=== PATIENT | male | born 1935 | race Caucasian/White ===

== ENCOUNTER 2023-05-16 12:38 | Emergency (ER) | payer OTHER, SELFPAY ==
[2023-05-16 12:40] VITALS: BP 163/55
[2023-05-16 12:42] VITALS: BP 163/55
[2023-05-16 12:46] VITALS: BMI 23.4
[2023-05-16 13:00] VITALS: BP 164/60
[2023-05-16 13:07] LABS: % Basophils 0.5 % (0-2); % Eosinophils 0.7 % (0-6); % Immature Granulocytes 0.1 % (0-0.5); % Monocytes 6.7 % (1.7-9.3); Absolute Eosinophils 0.1 10^3/uL (0-0.7); Absolute Lymphocytes 3.4 10^3/uL (1.2-3.4); Absolute Monocytes 0.5 10^3/uL (0.1-0.6); Absolute Neutrophils 3.5 10^3/uL (1.4-6.5); Hematocrit 35.4 % (39.0-52.0); Mean Corp Hgb Conc. 33.9 g/dL (33.0-37.0); Mean Corpuscular Volume 91.5 fL (80.0-94.0); Mean Platelet Volume 11.9 fL (7.4-10.4); Nucleated Red Blood Cells % 0 % (-); Platelet Count 139 10^3/uL (130-400); Red Blood Cell Count 3.87 10^6/uL (4.70-6.10); Red Cell Dist. Width 13.8 % (11.5-14.5); White Blood Cell Count 7.5 10^3/uL (4.8-10.8)
--- NOTE | 2023-05-16 13:13 | ED.GENMED ---
History of Present Illness
General
Chief Complaint: Change in Mental Status
Source: patient, ambulance crew and prison
Time Seen by Provider: 05/16/23 13:06
Travel History
Have you had any contact with someone who has COVID-19?: No
Do you have any symptoms of coronavirus? Fever > 100 degrees, chills, cough, shortness of breath, sore throat, loss of taste or smell, muscle aches, or headache?: No
History of Present Illness
History of Present Illness:
88-year-old male brought to the emerged by ambulance after being found on the floor. Patient had been seen 15 minutes prior and had been 'okay'. Stiff has explained to EMS that patient was less aggressive than normal. Patient offers no
complaints. He does endorse falling but states it was a very mild fall. He denies any headache. He does not take any oral anticoagulant.
Past History
Past History
ED Past Medical History: HTN, Hypercholesterolemia and Other (alzheimers)
Social History
Tobacco: Non-smoker
Alcohol: None
Drug: None
Phy Exam
Physical Exam
Physical Exam:
General: Awake, Alert, Oriented X2. No acute distress.
Vitals: unremarkable
Head: Atraumatic
Eyes: Pupils equal, EOMI
Throat: Airway intact, no exudates
Neck: Trachea midline
Lungs: Clear and equal b/l
Heart: Regular rate, no murmurs
Abd: Soft, Nontender, No pulsatile mass
Neuro: Nonfocal
Skin: Warm, dry, no rash
Extremities: pulses equal b/l, no edema
Course
Orders/Labs/Results
Orders:
Orders
05/16/23 12:45
EKG [Electrocardiogram (*1)] Urgent
Reason for Study: Hypertension, Benign
EKG- Treatment ONCE
05/16/23 12:55
Basic Metabolic Panel Urgent
Complete Blood Count/With Diff Urgent
05/16/23 13:13
CT Head W/o Iv Contrast Urgent
Comment:
Reason For Exam: altered mental status
05/16/23 13:28
Urinalysis Reflex To Culture Urgent
Date Specimen was Collected: 05/16/23
Time Specimen was Collected: 13:26
Urine Microscopic Reflex Cult Urgent
Urine Culture Urgent
INOCENCIO Source: U
Specimen Description:
Date Specimen was Collected: 05/16/23
Time Specimen was Collected: 13:26
Abnormal Lab Results
05/16/23 05/16/23
12:55 13:28
RBC 3.87 L 10^6/uL
(4.70-6.10)
Hgb 12.0 L g/dL
(13.0-18.0)
Hct 35.4 L %
(39.0-52.0)
MPV 11.9 H fL
(7.4-10.4)
BUN 25 H mg/dl
(9-20)
Leukocyte Esterase Rfl 1+ A
(Negative)
Urine RBC 7-10 A /HPF
(0-2)
Urine WBC (Reflex) 16-20 A /HPF
(0-5)
Urine Bacteria (Reflex) Moderate A
(Negative)
Urine Albumin (Reflex) 1+ A
(Neg - Trace)
05/16/23 12:55
05/16/23 12:55
Vital Signs
Initial and Last Documented VS:
Initial Vital Signs
Temp Pulse Resp BP Pulse Ox
98.9 F 57 12 163/55 98
05/16/23 12:40 05/16/23 12:40 05/16/23 12:40 05/16/23 12:40 05/16/23 12:40
Last Documented Vital Signs
Temp Pulse Resp BP Pulse Ox
98.9 F 60 13 161/64 98
05/16/23 12:40 05/16/23 14:15 05/16/23 14:15 05/16/23 13:47 05/16/23 14:51
MDM/Problems Addressed
Differential Diagnosis Includes:
Fall without significant injury, UTI, electrolyte abnormality,
MDM/Problems Addressed:
Urinalysis is suggestive of a contaminated specimen. We will obtain urine culture and patient will be called if it appears she is growing a pathologic organism. Rest of labs are reassuring. Stable for discharge back to his facility.
*Pulse Oximetry
Patient hypoxic: no
*EKG
Interpreted by ED Provider?: Yes
Heart Rate: 58
Rate: bradycardiac
Rhythm: sinus
Interval: normal interval
QRS Pattern: left vent hypertrophy
Ischemia: non-specific ST changes
*Social Media Sr Strategy Manager Interpretation
Rate: bradycardiac
Interpretation: abnormal
Rhythm: sinus
*Critical Care Note
Total Time (30-74mins, 75-104mins- exclusive of procedures): Not Applicable
ED Attending Note
-
Portions of this chart may have been created with voice recognition software.� Occasional wrong word or��sound alike� substitutions may have occurred due to the inherent limitations of voice recognition software.
Discharge Plan
Departure
Patient Disposition: Alf/SNF
Date of Disposition: 05/16/23
Time of Disposition: 14:52
Patient with high blood pressure during this ER visit?: Yes
Condition: Good
Discharge Problem:
Fall, Head injury
Instructions: Preventing falls in adults, BLOOD PRESSURE
Prescriptions:
No Action
loperamide 2 mg Capsule
4 mg PO DAILYPRN PRN (Reason: diarrhea)
trazodone 50 mg Tablet
50 mg PO HS
donepezil 10 mg Tablet
20 mg PO QPM
cyanocobalamin (vitamin B-12) 1,000 mcg Tablet
1,000 mcg PO DAILY
lorazepam 0.5 mg Tablet
0.5 mg PO Q12H@0900,2100
diltiazem HCl 60 mg Capsule,Extended Release 12 Hr
60 mg PO DAILY
escitalopram oxalate 20 mg Tablet
20 mg PO DAILY
rosuvastatin 10 mg Tablet
10 mg PO QPM
cholecalciferol (vitamin D3) 25 mcg (1,000 unit) Tablet
25 mcg PO DAILY
Rexulti 0.5 mg Tablet
0.5 mg PO DAILY
Referrals:
Alisha Blanc DO [Family Provider] -
Interventions
Interventions:
*Risk Screen - Suicide Last Done: 05/16/23 12:40
*General Assessment Last Done: 05/16/23 12:40
*Neglect/Abuse Screening Last Done: 05/16/23 12:40
ED- Fall Risk Assessment Last Done: 05/16/23 12:40
*ED COVID-19 Vaccine History Last Done: 05/16/23 12:40
*Nursing Disposition Last Done: 05/16/23 14:51
ED- Pulmonary Assessment Last Done: 05/16/23 14:51
ED-Psychological Assessment Last Done: 05/16/23 14:51
ED- Neurological Assessment Last Done: 05/16/23 12:40
ED- Cardiac Assessment Last Done: 05/16/23 12:40
ED Swallowing Screen Last Done: 05/16/23 12:40
Discharge Date and Time
Discharge Date/Time: 05/16/23 15:42
[2023-05-16 13:18] LABS: Blood Urea Nitrogen 25 mg/dl (9-20); Calcium 9.4 mg/dl (8.4-10.2); Carbon Dioxide 28 mmol/L (22-30); Chloride 104 mmol/L (98-107); Estimated Creatinine Clearance 44 ml/min; Glucose 77 mg/dl (70-99); Potassium 3.9 mmol/L (3.5-5.1); Sodium 135 mmol/L (135-145); eGFR 53.17
[2023-05-16 13:30] VITALS: BP 177/61
[2023-05-16 13:44] LABS: Urine Albumin 1+ (Neg - Trace); Urine Bilirubin Negative (Negative); Urine Character Slightly Cloudy (Clear); Urine Color Yellow; Urine Glucose Negative (Negative); Urine Ketone Negative (Negative); Urine Leukocyte 1+ (Negative); Urine Nitrite Negative (Negative); Urine Occult Blood Negative (Negative); Urine Urobilinogen Negative (Neg - 1+)
[2023-05-16 13:47] VITALS: BP 161/64
[2023-05-16 13:59] LABS: Urine Squamous Cell >30 /LPF (Few)
[2023-05-16 14:00] LABS: Urine White Cell 16-20 /HPF (0-5)
[2023-05-16 14:03] LABS: Urine Bacteria Moderate (Negative)
== END 2023-05-16 15:42 ==
LOC: EMR 12:38
PROVIDERS: Emergency Medicine; EMERGENCY PHYSICIAN Emergency Medicine; FAMILY PHYSICIAN Hospitalist
DX: S09.90XA Unspecified injury of head, initial encounter (principal); W19.XXXA Unspecified fall, initial encounter; I10 Essential (primary) hypertension
CPT/HCPCS: 99285; 70450; 80048; 81003; 81015; 85025; 87086; 93005

== ENCOUNTER 2023-06-19 10:36 | Emergency (ER) | payer OTHER, SELFPAY ==
[2023-06-19 10:43] VITALS: BP 135/56; BMI 21.8
[2023-06-19 11:00] VITALS: BP 121/63
--- NOTE | 2023-06-19 11:24 | ED.GENMED ---
History of Present Illness
General
Chief Complaint: Cold/Flu/URI Symptoms
Source: patient
Exam Limitations: none
Time Seen by Provider: 06/19/23 10:57
Nursing documentation reviewed up to this point in time: agreed with
Travel History
Have you had any contact with someone who has COVID-19?: No
Do you have any symptoms of coronavirus? Fever > 100 degrees, chills, cough, shortness of breath, sore throat, loss of taste or smell, muscle aches, or headache?: No
History of Present Illness
History of Present Illness:
88 yo male with h/o Altzheimer's, HLD, HTN presents stating here for 'mucus in my chest.' States he has a post nasal drip and coughing up excess mucus. Denies fever, CP, trouble breathing, n/v/d/c, abdominal pain.
Past History
Past History
ED Past Medical History: HTN, Hypercholesterolemia and Other (Alzheimer's)
ED Past Surgical History: Orthopedic
Social History
Tobacco: Non-smoker
Alcohol: None
Drug: None
Personal:
Living: other (dementia care facility)
Review of Systems
Review of Systems
Allergies reviewed?: Yes
All Other Systems: ROS reviewed and negative except as documented in HPI and ROS
Constitutional: Denies fever
EENT: Reports runny nose and other (post nasal drip); Denies sore throat
Respiratory: Reports cough (more clearing of throat than coughing); Denies trouble breathing
Cardiac: Denies chest pain
ABD/GI: Denies abdominal pain or nausea
: Denies dysuria or difficulty voiding
Musculoskeletal: Reports no symptoms
Skin: Reports no symptoms
Neurological: Reports no symptoms
Phy Exam
Physical Exam
Physical Exam:
GENERAL: No acute distress. A&Ox3.
CONSTITUTIONAL: Afebrile.
EYES: PERRL, conjunctivae normal
Neck: Supple
ENMT: moist mucus membranes, Pharynx nl, clears throat with clear mucus
RESPIRATORY: Regular respirations, nonlabored, lungs clear.
CARDIOVASCULAR: Regular rate and rhythm, no murmurs, no rubs.
GI: Soft, nontender, normal BS
MUSCULOSKELETAL: Moves with ease. Well perfused.
SKIN: Warm, dry, pink
PSYCH: Normal mood and affect. Well kept, interactive and appropriate
NEUROLOGIC: Awake, alert and oriented. No focal neurological deficits
Course
Orders/Labs/Results
Orders:
Orders
06/19/23 11:24
CR Chest - 2 Views Urgent
Comment:
Reason For Exam: cough
06/19/23 11:39
COVID-19 Antigen Urgent
Source: Nasal Swab
Complete Blood Count/With Diff Urgent
Comprehensive Metabolic Panel Urgent
06/19/23 13:18
Doxycycline [Vibramycin] 100 mg PO NOW STA
Abnormal Lab Results
06/19/23
11:39
RBC 4.08 L 10^6/uL
(4.70-6.10)
Hgb 12.1 L g/dL
(13.0-18.0)
Hct 37.2 L %
(39.0-52.0)
MCHC 32.5 L g/dL
(33.0-37.0)
MPV 12.8 H fL
(7.4-10.4)
Absolute Lymphs (auto) 3.9 H 10^3/uL
(1.2-3.4)
Neutrophils % 40.9 L %
(42.2-75.2)
BUN 22 H mg/dl
(9-20)
06/19/23 11:39
06/19/23 11:39
Vital Signs
Initial and Last Documented VS:
Initial Vital Signs
Temp Pulse Resp BP Pulse Ox
98.5 F 53 18 135/56 98
06/19/23 10:43 06/19/23 10:43 06/19/23 10:43 06/19/23 10:43 06/19/23 10:43
Last Documented Vital Signs
Temp Pulse Resp BP Pulse Ox
98.5 F 68 18 103/74 96
06/19/23 10:43 06/19/23 14:01 06/19/23 14:01 06/19/23 14:00 06/19/23 13:59
MDM/Problems Addressed
Differential Diagnosis Includes:
PND, COVID, pneumonia, viral URI
MDM/Problems Addressed:
88 yo male here from [facility]) with h/o Altzheimer's, HLD, HTN presents stating here for 'mucus in my chest.' States he has a post nasal drip and coughing up excess mucus. Denies fever, CP, trouble breathing, n/v/d/c,
abdominal pain.
He is pleasant, NAD, Afebrile
Is clearing his throat with clear mucus expectorated.
06/19/2023 1316 PM
CBC unremarkable
CMP with no clinically significant abnormality
Chest x-ray radiology report read: IMPRESSION:
Questionable small patchy right upper lobe opacity for which pneumonia cannot be excluded.
Pt eating regular diet and drinking well. No dysphagia
Frequently clearing throat and spitting out clear mucus
Will treat with Doxycycline 100 mg BID x 10 days.
Stable for discharge back to residence
Spoke with daughter Gala updated on diagnosis and plan of care
Received a call from a staff member who is going to stop by [facility] pharmacy to bean picker machine operator his prescription and then swing by here and pick him
*Critical Care Note
Total Time (30-74mins, 75-104mins- exclusive of procedures): Not Applicable
ED Attending Note
-
Portions of this chart may have been created with voice recognition software.� Occasional wrong word or��sound alike� substitutions may have occurred due to the inherent limitations of voice recognition software.
Discharge Plan
Departure
Patient Disposition: Assisted Living
Date of Disposition: 06/19/23
Time of Disposition: 13:17
Condition: Good
Discharge Problem:
Pneumonia
Instructions: Pneumonia
Prescriptions:
New
doxycycline monohydrate 100 mg capsule
100 mg PO BID Qty: 19 0RF
No Action
loperamide 2 mg Capsule
4 mg PO DAILYPRN PRN (Reason: diarrhea)
trazodone 50 mg Tablet
50 mg PO HS
donepezil 10 mg Tablet
20 mg PO QPM
cyanocobalamin (vitamin B-12) 1,000 mcg Tablet
1,000 mcg PO DAILY
lorazepam 0.5 mg Tablet
0.5 mg PO Q12H@0900,2100
diltiazem HCl 60 mg Capsule,Extended Release 12 Hr
60 mg PO DAILY
escitalopram oxalate 20 mg Tablet
20 mg PO DAILY
rosuvastatin 10 mg Tablet
10 mg PO QPM
cholecalciferol (vitamin D3) 25 mcg (1,000 unit) Tablet
25 mcg PO DAILY
Rexulti 0.5 mg Tablet
0.5 mg PO DAILY
Referrals:
Alisha Blanc, [Non-Admitting Privileges] - Follow up in 2-3 days
Activity Restrictions/Additional Instructions:
Pt has probable mild RUL pneumonia
Given Doxycycline 100 mg here today
Rx for Doxycycline 100 mg BID sent back with him
He is swallowing food and water well. No dysphagia
He is clearing his throat with mucus frequently
Interventions
Interventions:
*Risk Screen - Suicide Last Done: 06/19/23 10:43
*General Assessment Last Done: 06/19/23 10:43
*Neglect/Abuse Screening Last Done: 06/19/23 10:43
ED- Fall Risk Assessment Last Done: 06/19/23 10:43
*ED COVID-19 Vaccine History Last Done: 06/19/23 10:43
*Nursing Disposition Last Done: 06/19/23 14:33
ED- Pulmonary Assessment Last Done: 06/19/23 10:43
Discharge Date and Time
Discharge Date/Time: 06/19/23 15:35
[2023-06-19 12:00] VITALS: BP 131/61
[2023-06-19 12:04] LABS: COVID-19 Antigen Negative (Negative)
[2023-06-19 12:39] LABS: ALT (SGPT) 24 U/L (0-50); AST (SGOT) 30 U/L (17-59); Alkaline Phosphatase 76 U/L (38-126); Blood Urea Nitrogen 22 mg/dl (9-20); Carbon Dioxide 25 mmol/L (22-30); Chloride 106 mmol/L (98-107); Estimated Creatinine Clearance 47 ml/min; Glucose 91 mg/dl (70-99); Potassium 4.9 mmol/L (3.5-5.1); Sodium 135 mmol/L (135-145); Total Bilirubin 0.6 mg/dl (0.2-1.3); Total Protein 6.5 g/dl (6.3-8.2); eGFR 58.53
[2023-06-19 12:44] LABS: % Basophils 0.6 % (0-2); % Eosinophils 1.9 % (0-6); % Immature Granulocytes 0.1 % (0-0.5); % Lymphocytes 48.9 % (20.5-51.1); % Monocytes 7.6 % (1.7-9.3); % Neutrophils 40.9 % (42.2-75.2); Absolute Basophils 0.1 10^3/uL (0-0.2); Absolute Eosinophils 0.2 10^3/uL (0-0.7); Absolute Lymphocytes 3.9 10^3/uL (1.2-3.4); Absolute Monocytes 0.6 10^3/uL (0.1-0.6); Absolute Neutrophils 3.2 10^3/uL (1.4-6.5); Hematocrit 37.2 % (39.0-52.0); Hemoglobin 12.1 g/dL (13.0-18.0); Mean Corp Hgb Conc. 32.5 g/dL (33.0-37.0); Mean Corpuscular Hgb 29.7 pg (27.0-31.0); Mean Corpuscular Volume 91.2 fL (80.0-94.0); Mean Platelet Volume 12.8 fL (7.4-10.4); Nucleated Red Blood Cells % 0 % (-); Platelet Count 151 10^3/uL (130-400); Red Blood Cell Count 4.08 10^6/uL (4.70-6.10); Red Cell Dist. Width 13.3 % (11.5-14.5); White Blood Cell Count 7.9 10^3/uL (4.8-10.8)
[2023-06-19 13:18] VITALS: BP 133/98
[2023-06-19] MEDS: VIBRAMYCIN 100 MG PO (13:58)
[2023-06-19 14:00] VITALS: BP 103/74
== END 2023-06-19 15:35 ==
LOC: EMR 10:36
PROVIDERS: Registered Nurse; EMERGENCY PHYSICIAN Emergency Medicine
DX: J18.9 Pneumonia, unspecified organism (principal); Z11.52 Encounter for screening for COVID-19; I10 Essential (primary) hypertension; E78.00 Pure hypercholesterolemia, unspecified; G30.9 Alzheimer's disease, unspecified; F02.80 Dementia in other diseases classified elsewhere, unspecified severity, without behavioral disturbance, psychotic disturbance, mood disturbance, and anxiety; N40.0 Benign prostatic hyperplasia without lower urinary tract symptoms; Z88.0 Allergy status to penicillin
CPT/HCPCS: 99283; 71046; 80053; 85025; 87811

== ENCOUNTER 2023-08-04 13:01 | Inpatient (IN) | payer OTHER, SELFPAY ==
[2023-08-04 10:54] VITALS: BP 133/58
--- NOTE | 2023-08-04 11:06 | ED.GENMED ---
History of Present Illness
General
Chief Complaint: Cough
Source: patient and ambulance crew
Time Seen by Provider: 08/04/23 10:56
Travel History
Have you had any contact with someone who has COVID-19?: No
Do you have any symptoms of coronavirus? Fever > 100 degrees, chills, cough, shortness of breath, sore throat, loss of taste or smell, muscle aches, or headache?: No
History of Present Illness
History of Present Illness:
88-year-old male with past medical history of Alzheimer's, hypertension, hyperlipidemia presenting to the emergency department for evaluation of cough x 2 weeks that is now causing the patient discomfort when coughing. There is no reported fevers,
chills, rigors, lower extremity edema, abdominal pain, nausea, vomiting, current chest pain when not coughing, shortness of breath, diaphoresis or any other concerns. No medications been given for the cough. No other concerns at this time
Past History
Past History
ED Past Medical History: HTN, Hypercholesterolemia and Other (Alzheimer's)
ED Past Surgical History: Orthopedic
Social History
Tobacco: Non-smoker
Alcohol: None
Drug: None
Personal:
Living: other (dementia care facility)
Review of Systems
Review of Systems
All Other Systems: ROS reviewed and negative except as documented in HPI and ROS
Phy Exam
Physical Exam
Physical Exam:
GENERAL: Alert , in no apparent distress, dry hacking cough intermittently during the exam
EYE: conjunctiva clear
NECK: Supple
ENT: o/p clr, mmm.
CARDIAC: Regular rate and rhythm
LUNGS: Faint wheeze that clears with coughing, rhonchorous cough, no Rales
NEUROLOGICAL: Alert and oriented
SKIN: Warm and dry, skin intact.
MUSCULOSKELETAL: well perfused. No edema
PSYCH: Normal and appropriate interaction.
Scores
Heart Failure Risk
Heart Failure Risk Score: Not Applicable
Heart Score for Chest Pain Patients
STEMI patient?: Not applicable
Withdrawal Assessment of Alcohol
Withdrawal Assessment Completed?: Not applicable
Course
Orders/Labs/Results
Orders:
Orders
08/04/23 11:06
CR Chest Portable - 1 View Urgent
Comment:
Reason For Exam: cough x 2 weeks
Reason Study Needs to be Portable: Unable to Transport
08/04/23 11:17
Basic Metabolic Panel Urgent
COVID-19 Antigen Urgent
Source: Nasal Swab
Complete Blood Count/With Diff Urgent
NT-proBNP Urgent
08/04/23 11:37
Azithromycin [Zithromax] 500 mg PO NOW STA
CefTRIAXone [Rocephin] 1,000 mg IV NOW STA
08/04/23 11:41
Sterile Water [Sterile Water For Injection] 10 ml .ROUTE .[facility]
08/04/23 12:36
Admit/Transfer Patient As Directed
Co-Sign Provider:
Level of Care: Inpatient admission
Assign to:: Medical/Surgical
Physician / Group: Nat
Diagnosis: RUL pneumonia
Reason for Hospitalization: IV antibiotics, CT chest
Expected length of stay greater than two midnights?: Yes
ELOS- Estimated Length of Stay in days: 2
I certify the patient meets the requirements for IP care: Yes
CT Chest W/o Iv Contrast Routine
Comment:
Reason For Exam: RUL mass
08/04/23 12:39
Code Status As Directed
Resuscitation Status: Full Code
Abnormal Lab Results
08/04/23
11:17
WBC 14.7 H 10^3/uL
(4.8-10.8)
RBC 3.91 L 10^6/uL
(4.70-6.10)
Hgb 12.0 L g/dL
(13.0-18.0)
Hct 34.7 L %
(39.0-52.0)
MPV 11.6 H fL
(7.4-10.4)
Abs Immat Gran (auto) 0.1 H 10^3/uL
(0-0.05)
Absolute Neuts (auto) 11.7 H 10^3/uL
(1.4-6.5)
Absolute Monos (auto) 0.9 H 10^3/uL
(0.1-0.6)
Neutrophils % 79.8 H %
(42.2-75.2)
Lymphocytes % 13.2 L %
(20.5-51.1)
Sodium 134 L mmol/L
(135-145)
BUN 24 H mg/dl
(9-20)
08/04/23 11:17
08/04/23 11:17
Vital Signs
Initial and Last Documented VS:
Initial Vital Signs
Temp Pulse Resp BP Pulse Ox
98.9 F 62 20 133/58 93
08/04/23 10:54 08/04/23 10:54 08/04/23 10:54 08/04/23 10:54 08/04/23 10:54
Last Documented Vital Signs
Temp Pulse Resp BP Pulse Ox
98.9 F 66 20 133/58 92
08/04/23 10:54 08/04/23 12:28 08/04/23 10:54 08/04/23 10:54 08/04/23 12:15
MDM/Problems Addressed
Differential Diagnosis Includes:
Pneumonia, asthma, COPD, viral syndrome
MDM/Problems Addressed:
88-year-old male presenting to the ER for evaluation of cough x 2 weeks, today apparently started with discomfort in his chest when coughing. He arrives to the ER hemodynamically stable and in no acute respiratory distress. Patient is somewhat
argumentative during history taking and physical exam. Oxygen saturation continuously between 95 and 97% on room air. Will obtain labs and a chest x-ray. Reassessment following.
Chronic conditions affecting care: HTN and Neurological disorder
*Radiology
Radiology exam reviewed: preliminary read by ED provider (Suspected right upper lobe pneumonia)
*Pulse Oximetry
Patient hypoxic: no
*Critical Care Note
Total Time (30-74mins, 75-104mins- exclusive of procedures): Not Applicable
Data Reviewed
Review of Other/Old Records Reveals: Records (Patient recently here in May diagnosed with pneumonia with similar presentation)
Patient Management
Discussion with other providers: Hospitalist
Escalation/DeEscalation of care consider admission/obs:
Given patient's age, past medical history combined with resident in a long-term care facility and apparent worsening of pneumonia plan will be to admit to hospitalist team for IV antibiotics.
ED Attending Note
-
Portions of this chart may have been created with voice recognition software.� Occasional wrong word or��sound alike� substitutions may have occurred due to the inherent limitations of voice recognition software.
Discharge Plan
Departure
Patient Disposition: Admit
Date of Disposition: 08/04/23
Time of Disposition: 11:43
Presentation/result/management discussed w/ accepting MD/DO: Hospitalist
Discharge Problem:
Pneumonia
Interventions
Interventions:
*Risk Screen - Suicide Last Done: 08/04/23 10:54
*General Assessment Last Done: 08/04/23 10:54
*Neglect/Abuse Screening Last Done: 08/04/23 10:54
*ED COVID-19 Vaccine History Last Done: 08/04/23 10:54
ED- Pulmonary Assessment Last Done: 08/04/23 11:04
[2023-08-04 11:32] LABS: % Basophils 0.3 % (0-2); % Eosinophils 0.5 % (0-6); % Immature Granulocytes 0.3 % (0-0.5); % Lymphocytes 13.2 % (20.5-51.1); % Monocytes 5.9 % (1.7-9.3); % Neutrophils 79.8 % (42.2-75.2); Absolute Basophils 0.1 10^3/uL (0-0.2); Absolute Eosinophils 0.1 10^3/uL (0-0.7); Absolute Immature Granulocytes 0.1 10^3/uL (0-0.05); Absolute Lymphocytes 1.9 10^3/uL (1.2-3.4); Absolute Monocytes 0.9 10^3/uL (0.1-0.6); Absolute Neutrophils 11.7 10^3/uL (1.4-6.5); Hematocrit 34.7 % (39.0-52.0); Mean Corp Hgb Conc. 34.6 g/dL (33.0-37.0); Mean Corpuscular Hgb 30.7 pg (27.0-31.0); Mean Corpuscular Volume 88.7 fL (80.0-94.0); Mean Platelet Volume 11.6 fL (7.4-10.4); Nucleated Red Blood Cells % 0 % (-); Platelet Count 147 10^3/uL (130-400); Red Blood Cell Count 3.91 10^6/uL (4.70-6.10); Red Cell Dist. Width 13.2 % (11.5-14.5); White Blood Cell Count 14.7 10^3/uL (4.8-10.8)
[2023-08-04 11:41] LABS: COVID-19 Antigen Negative (Negative)
[2023-08-04 11:46] LABS: Blood Urea Nitrogen 24 mg/dl (9-20); Calcium 9.5 mg/dl (8.4-10.2); Carbon Dioxide 27 mmol/L (22-30); Chloride 102 mmol/L (98-107); Glucose 98 mg/dl (70-99); Potassium 4.2 mmol/L (3.5-5.1); Sodium 134 mmol/L (135-145); eGFR > 60.00
[2023-08-04] MEDS: ZITHROMAX 500 MG PO (11:50)
[2023-08-04] MEDS: ROCEPHIN 1000 MG IV (11:51)
[2023-08-04 11:56] LABS: NT-proBNP 795 pg/ml
--- NOTE | 2023-08-04 12:43 | HPS.HSE ---
Addendum entered and electronically signed by Christian Johns DO 08/04/23 12:54:
Updated daughter Gala on the phone. All questions answered. She mentioned that her father is a full code.
Original Note:
Family Physician
-
Family Physician: NOT KNOW UNKNOWN - PT DOES
Chief Complaint
-
Cough
History of Present Illness
88-year-old male with Alzheimer's dementia here with cough for the past 2 weeks. Denies shortness of breath. Denies chest pain. Denies loss of appetite. Denies weight loss. Very poor and limited historian. Becomes progressively more angry when
asked more questions.
Medical History
Past Medical History
Past Medical History: Reports Other
Additional Past Medical History:
Alzheimer's dementia
Essential hypertension
Hyperlipidemia
Past Surgical History: Reports Orthopedic
Social History
Tobacco: Non-smoker
Alcohol: None
Drug: None
Family History
Family History: Not pertinent
Allergies / Home Medications
Allergies reflects when Allergies were last updated in [facility].
Home Medications with original date entered in [facility]
Allergy/Medication List:
Allergies
Allergy/AdvReac Type Severity Reaction Status Date / Time
Penicillins Allergy Unknown Verified 06/19/23 10:42
NKA - No Known Allergies Allergy Unknown Uncoded 06/19/23 10:42
Home Medications
cholecalciferol (vitamin D3) 25 mcg (1,000 unit) tablet 25 mcg PO DAILY 05/16/23
cyanocobalamin (vitamin B-12) 1,000 mcg tablet 1,000 mcg PO DAILY 05/16/23
donepezil 10 mg tablet 20 mg PO QPM 05/16/23
trazodone 50 mg tablet 50 mg PO HS 05/16/23
aspirin 81 mg tablet,delayed release 81 mg PO DAILY 08/04/23
atorvastatin 20 mg tablet 20 mg PO QPM 08/04/23
diltiazem HCl 30 mg tablet 30 mg PO BID 08/04/23
lisinopril 5 mg tablet 5 mg PO DAILY 08/04/23
sertraline 100 mg tablet 100 mg PO DAILY 08/04/23
Review of Systems
-
Unable to obtain full review of systems at this time due to: Dementia
History Source: Patient
A 12 point ROS was completed and negative except as noted: Yes
Physical Exam
Vital Signs
Vital Signs
Temp Pulse Resp BP Pulse Ox
98.9 F 66 20 133/58 92
08/04/23 10:54 08/04/23 12:28 08/04/23 10:54 08/04/23 10:54 08/04/23 12:15
Physical Exam
General: Well Developed, Well Nourished, No Apparent Distress and Comfortable
HEENT: NormoCephalic, Anicteric and Moist mucous membranes
Respiratory: Rhonchi
Cardiac: S1/S2 and Regular Rhythm
GI: Soft, Non Tender and Non Distended
Genito-urinary: Deferred by me
Musculoskeletal: No Clubbing, No Cyanosis and No Edema
Skin: Warm and Dry
Neuro: Awake and Alert
Hematologic/Lymphatic: No Lymphadenopathy
Psych: Calm
Laboratory Results
-
08/04/23 11:17
08/04/23 11:17
Impression/Plan
-
Right upper lobe pneumonia -concerning given abnormal chest x-ray dating back to May. Will check CT chest to rule out mass. Start empiric antibiotics. Admit to MedSurg. Afebrile, no signs or symptoms of sepsis.
Mild hyponatremia -134. Monitor for now.
Essential hypertension -stable.
Hyperlipidemia -on atorvastatin.
Alzheimer's dementia
CODE STATUS -presumably full code until clarified by family. I left a voicemail for patient's daughter Gala to call me back.
[2023-08-04 14:30] VITALS: BP 137/72; BMI 25.0
--- NOTE | 2023-08-04 15:26 | PTCARENOTE ---
Patient admitted to [facility]. Patient is confused at baseline and did not know he was in the hospital. Patient ambulated from stretcher to bed with assistance x1. Able to make needs known, oriented to room. RN attempted to listen to heart and
lungs - patient refused states 'you're not a doctor'
--- NOTE | 2023-08-04 15:51 | PTCARENOTE ---
Patient is attempting to get up out of bed. Bed alarm in place. There are no med-sitters available at this time
[2023-08-04] MEDS: LOVENOX 40 MG SC (16:57)
[2023-08-04] MEDS: LIPITOR 20 MG PO (16:57)
[2023-08-04] MEDS: ARICEPT 20 MG PO (16:57)
[2023-08-04] MEDS: CARDIZEM 30 MG PO (21:02)
[2023-08-04] MEDS: DESYREL 50 MG PO (21:02)
[2023-08-05 07:42] LABS: % Basophils 0.5 % (0-2); % Eosinophils 1.6 % (0-6); % Immature Granulocytes 0.4 % (0-0.5); % Monocytes 6.6 % (1.7-9.3); % Neutrophils 58.9 % (42.2-75.2); Absolute Basophils 0.1 10^3/uL (0-0.2); Absolute Eosinophils 0.2 10^3/uL (0-0.7); Absolute Lymphocytes 3.6 10^3/uL (1.2-3.4); Absolute Monocytes 0.7 10^3/uL (0.1-0.6); Absolute Neutrophils 6.5 10^3/uL (1.4-6.5); Hematocrit 35.5 % (39.0-52.0); Mean Corp Hgb Conc. 33.8 g/dL (33.0-37.0); Mean Corpuscular Hgb 30.1 pg (27.0-31.0); Mean Platelet Volume 11.7 fL (7.4-10.4); Nucleated Red Blood Cells % 0 % (-); Platelet Count 144 10^3/uL (130-400); Red Blood Cell Count 3.99 10^6/uL (4.70-6.10); Red Cell Dist. Width 13.1 % (11.5-14.5); White Blood Cell Count 11.1 10^3/uL (4.8-10.8)
[2023-08-05] MEDS: CARDIZEM 30 MG PO ×2 (07:53→20:12)
[2023-08-05] MEDS: ASPIR LOW (ENTERIC COATED) 81 MG PO (07:53)
[2023-08-05] MEDS: VITAMIN D3 (cholecalciferol) 25 MCG PO (07:53)
[2023-08-05] MEDS: ZOLOFT 100 MG PO (07:53)
[2023-08-05] MEDS: VIBRAMYCIN 100 MG PO ×2 (07:53→20:11)
[2023-08-05] MEDS: VITAMIN B-12 1000 MCG PO (07:53)
[2023-08-05] MEDS: ZESTRIL 5 MG PO (07:53)
[2023-08-05 08:11] LABS: Blood Urea Nitrogen 24 mg/dl (9-20); Calcium 9.9 mg/dl (8.4-10.2); Carbon Dioxide 24 mmol/L (22-30); Chloride 104 mmol/L (98-107); Estimated Creatinine Clearance 47 ml/min; Glucose 78 mg/dl (70-99); Potassium 3.7 mmol/L (3.5-5.1); Sodium 137 mmol/L (135-145); eGFR > 60.00
[2023-08-05 08:18] VITALS: BP 129/51
--- NOTE | 2023-08-05 08:52 | W.PN.HOSP.TC ---
Addendum entered and electronically signed by Elinor Mark MD 08/05/23 15:00:
pt seen and examined independently--agree with plan as set forth by Dr. Parr
GENERAL: well developed, well nourished, male in no apparent distress
HEENT: NC/AT--no O2 requirements
HEART: regular rate and rhythm, +S1, +S2
LUNGS : clear to auscultation bilaterally
ABDOM: soft, nontender, nondistended, + bowel sounds
EXT: no cyanosis, clubbing, or edema
NEUROLOGIC: grossly intact--apparent dementia
Right upper lobe pneumonia--improved--no needs for home O2--off O2 currently--cont rocephin/doxycycline--will switch to oral at d/c--possible d/c tomorrow
Hyponatremia-- likely due to pulm process-- resolved
Hyperlipidemia--Continue atorvastatin
Essential Hypertension--Continue lisinopril 5 mg
Alzheimer's disease--lives in [facility]
code status--FULL CODE
Anticipated Discharge: 24 - 48 hours
Original Note:
Today's Communication/Plan
-
Will talk to daughter Gala
Possible dc tomorrow
Assessment / Plan
Assessment / Plan
88-year-old male with history of Alzheimer's disease came to the ED from [facility].
Impression
Right upper lobe pneumonia
Hyponatremia
Hyperlipidemia
Hypertension
Alzheimer's disease
Right
See HPI
Assessment and plan
Right upper lobe pneumonia
Leukocytosis has improved
Day 2 IV ceftriaxone and p.o. doxycycline
Trend WBC and temperature curve
CBC in a.m
Possible discharge tomorrow
Hyponatremia resolved
Hyperlipidemia
Continue atorvastatin
Hypertension
Continue lisinopril 5 mg
Monitor blood pressure
Alzheimer's disease
Continue home medications
Anticipated Discharge: 24 - 48 hours
Subjective/Interval History
-
Date of Service: August 05, 2023
Patient is confused as to why he is here. He is alert oriented. Patient was agitated last night.
Objective Data
-
Labs:
Laboratory Results
08/05/23
07:30
WBC 11.1 H
Hgb 12.0 L
Hct 35.5 L
Plt Count 144
Sodium 137
Potassium 3.7
Chloride 104
Carbon Dioxide 24
BUN 24 H
Creatinine 1.0
Glucose 78
Calcium 9.9
Vital Signs:
Vital Signs
Temp Pulse Resp BP Pulse Ox
98.6 F 60 18 129/51 93
08/05/23 08:18 08/05/23 08:18 08/05/23 08:18 08/05/23 08:18 08/05/23 08:18
Review of Systems
-
All other systems: Reviewed and negative (Except mentioned)
Physical Exam
-
General: Comfortable and Conversant
HEENT: Normocephalic and Atraumatic
Respiratory: Clear to Auscultation
Cardiac: Regular Rhythm and S1/S2
GI: Soft, Nontender and Nondistended
Musculoskeletal: No Edema
Neuro: AO x 3
Psych: Calm and Confused
Data Reviewed
-
Diagnostic Radiology: Report Reviewed by me and Discussed with Physician
CT Scan: Report Reviewed by me and Discussed with Physician
Medical Tests (Nuc Med, Echo etc): Report Reviewed by me and Discussed with Physician
[2023-08-05] MEDS: ROCEPHIN 1000 MG IV (11:39)
[2023-08-05] MEDS: FLUSH (NSS) 1 FLUSH IV (11:39)
[2023-08-05] MEDS: STERILE WATER FOR INJECTION 10 ML IV (11:39)
[2023-08-05 16:00] VITALS: BP 136/50
--- NOTE | 2023-08-05 16:22 | CM ---
Alert awake confused patient that lives with his at [facility] .Spoke with Gala guzman.she wants him to return to [facility] [place].He has Alzhimers .He uses a walker.Gala to arrange for nurse to drive him back
to [facility].
No SNF/DH VN hx
Pharmacy [facility]
PCP Dr Cristhian Olson
PLAN back to [facility].
--- NOTE | 2023-08-05 16:34 | PTCARENOTE ---
Pt awake and alert,oriented to self only; does not believe he is in [facility]- stated 'I've been there before, and this is not [place]!'. re-oriented as needed, but becomes angry with re-orientation. Irritable and uncooperative at
times. SORIA well, OOB to chair/BR with minimal assistance; does not want to be touched; refuses use of walker; stated 'those are for old people'. Fall prec maintained. VSS. On room air-pulse ox 95%, no SOB noted;has frequent cough. Abd soft,
rounded, ca reg diet. Voiding in BR/incont at times. Resting in chair at present. Will continue to monitor.
[2023-08-05] MEDS: LIPITOR 20 MG PO (17:44)
[2023-08-05] MEDS: ARICEPT 20 MG PO (17:44)
[2023-08-05] MEDS: LOVENOX 40 MG SC (17:44)
[2023-08-05 19:41] VITALS: BP 148/62
[2023-08-05] MEDS: DESYREL 50 MG PO (20:13)
[2023-08-05 23:09] VITALS: BP 128/64
[2023-08-06] MEDS: VIBRAMYCIN 100 MG PO (07:50)
[2023-08-06] MEDS: ZOLOFT 100 MG PO (07:50)
[2023-08-06] MEDS: ZESTRIL 5 MG PO (07:50)
[2023-08-06] MEDS: VITAMIN B-12 1000 MCG PO (07:50)
[2023-08-06] MEDS: CARDIZEM 30 MG PO (07:50)
[2023-08-06] MEDS: ASPIR LOW (ENTERIC COATED) 81 MG PO (07:50)
[2023-08-06] MEDS: VITAMIN D3 (cholecalciferol) 25 MCG PO (07:51)
[2023-08-06 07:57] VITALS: BP 139/63
--- NOTE | 2023-08-06 08:03 | W.PN.HOSP.TC ---
Addendum entered and electronically signed by Elinor Mark MD 08/06/23 13:14:
pt seen and examined independently--agree with plan as set forth by Dr. Parr
GENERAL: well developed, well nourished, male in no apparent distress
HEENT: NC/AT--no O2 requirements
HEART: regular rate and rhythm, +S1, +S2
LUNGS : clear to auscultation bilaterally
ABDOM: soft, nontender, nondistended, + bowel sounds
EXT: no cyanosis, clubbing, or edema
NEUROLOGIC: grossly intact--apparent dementia
Right upper lobe pneumonia--improved--no needs for home O2--off O2 currently--change rocephin/doxycycline to keflex and doxy at d/c--ok for d/c
Hyponatremia-- likely due to pulm process-- resolved
Hyperlipidemia--Continue atorvastatin
Essential Hypertension--Continue lisinopril 5 mg
Alzheimer's disease (agitation is related to the dementia nothing else)--lives in [facility]
code status--FULL CODE
Original Note:
Today's Communication/Plan
-
Doxycycline and keflex for 10 days
DIscharging today
Assessment / Plan
Assessment / Plan
88-year-old male with history of Alzheimer's disease came to the ED from [facility].
Impression
Right upper lobe pneumonia
Hyponatremia
Hyperlipidemia
Hypertension
Alzheimer's disease
Right
See HPI
Assessment and plan
Right upper lobe pneumonia
Leukocytosis has improved
Switch to oral doxycycline 100 mg twice daily for 10 days and
Keflex 500 mg twice daily for 10 days
Discharged today to [facility]
Hyponatremia resolved
Hyperlipidemia
Continue atorvastatin
Hypertension
Continue lisinopril 5 mg
Monitor blood pressure
Alzheimer's disease
Continue home medications
Anticipated Discharge: Today
Subjective/Interval History
-
Date of Service: August 06, 2023
Patient is ready to go home
Objective Data
-
Labs:
Laboratory Results
08/06/23
08:03
WBC Pending
Hgb Pending
Hct Pending
Plt Count Pending
Sodium Pending
Potassium Pending
Chloride Pending
Carbon Dioxide Pending
BUN Pending
Creatinine Pending
Glucose Pending
Calcium Pending
Vital Signs:
Vital Signs
Temp Pulse Resp BP Pulse Ox
97.9 F 59 18 139/63 95
08/06/23 07:57 08/06/23 07:57 08/06/23 07:57 08/06/23 07:57 08/06/23 07:57
I&O
08/05/23 08/06/23 08/07/23
06:59 06:59 06:59
Intake Total 1260 / 1260
Balance 1260 / 1260
Review of Systems
-
All other systems: Reviewed and negative
Physical Exam
-
General: Comfortable and Conversant
HEENT: Normocephalic and Atraumatic
Respiratory: Clear to Auscultation
Cardiac: Regular Rhythm and S1/S2
Musculoskeletal: No Edema
Neuro: Awake and Alert
[2023-08-06 08:19] LABS: % Basophils 0.7 % (0-2); % Eosinophils 2.7 % (0-6); % Immature Granulocytes 0.2 % (0-0.5); % Lymphocytes 34.3 % (20.5-51.1); % Monocytes 6.7 % (1.7-9.3); % Neutrophils 55.4 % (42.2-75.2); Absolute Basophils 0.1 10^3/uL (0-0.2); Absolute Eosinophils 0.3 10^3/uL (0-0.7); Absolute Lymphocytes 3.5 10^3/uL (1.2-3.4); Absolute Monocytes 0.7 10^3/uL (0.1-0.6); Absolute Neutrophils 5.6 10^3/uL (1.4-6.5); Hematocrit 35.7 % (39.0-52.0); Hemoglobin 11.9 g/dL (13.0-18.0); Mean Corp Hgb Conc. 33.3 g/dL (33.0-37.0); Mean Corpuscular Hgb 30.1 pg (27.0-31.0); Mean Corpuscular Volume 90.4 fL (80.0-94.0); Mean Platelet Volume 11.9 fL (7.4-10.4); Nucleated Red Blood Cells % 0 % (-); Platelet Count 164 10^3/uL (130-400); Red Blood Cell Count 3.95 10^6/uL (4.70-6.10); White Blood Cell Count 10.1 10^3/uL (4.8-10.8)
[2023-08-06 08:38] LABS: Blood Urea Nitrogen 22 mg/dl (9-20); Carbon Dioxide 23 mmol/L (22-30); Chloride 104 mmol/L (98-107); Estimated Creatinine Clearance 43 ml/min; Glucose 98 mg/dl (70-99); Potassium 4.2 mmol/L (3.5-5.1); Sodium 136 mmol/L (135-145); eGFR > 60.00
--- NOTE | 2023-08-06 11:36 | PN.CDI ---
CDI
- -
CDI:
Physician Documentation Request
Admit Date: 08/04/23 13:01
Dear Doctor Deedee,
Please review the following and provide your response in the progress notes.
08/03 PCN: 'RN attempted to listen to heart and lungs - patient refused states 'you're not a doctor' '
08/04 PCN: 'does not believe he is in [facility]- stated 'I've been there before, and this is not [place]!'. re-oriented as needed, but becomes angry with re-orientation. Irritable and uncooperative at times...does not want to be
touched; refuses use of walker'
08/04 Hospitalist PN: 'Alzheimer's disease...Patient was agitated last night.'
If possible, please further clarify any associated manifestations of dementia:
Alzheimer's with agitation
Alzheimer's with behavioral disturbance
Alzheimer's with no associated manifestations
Other
Use of terms such as suspected, likely, concern for, or probable (associated with a specific diagnosis that is being evaluated, monitored, or treated as if it exists) are acceptable and can be coded in the inpatient setting, when documented at the
time of discharge.
Thank you,
Glory Rutherford RN, BSN
CDI Specialist
Available via [employer] text
Please use your independent medical judgment in providing your response.
[2023-08-06] MEDS: ROCEPHIN 1000 MG IV (12:06)
[2023-08-06] MEDS: STERILE WATER FOR INJECTION 10 ML IV (12:06)
[2023-08-06] MEDS: FLUSH (NSS) 1 FLUSH IV (12:06)
[2023-08-06 12:55] VITALS: BP 128/61
--- NOTE | 2023-08-06 13:34 | CM ---
Pt is from [facility] .
Spoke with Becca [phone] from [facility]. Number given by daughter to call.
Becca requested a PT script to be sent MD notified.She will set up [facility].
Daughter and Becca set up Caregiver Bridget to drive him to [facility].
PLAN Return to [facility]
--- NOTE | 2023-08-06 15:28 | W.DCSUMMARY ---
Addendum entered and electronically signed by Elinor Mark MD 08/06/23 16:01:
Fully read and agree with d/c summary as set forth by Dr. Parr.
Original Note:
Discharge Summary
Discharge Data
Date of Admission: 08/04/23
Date of Discharge: 08/06/23
-
Pending Results: No
Hospital Course
88-year-old male presented with recent cough for the past 2 weeks. Patient lives in [facility] [place] with his . Patient was brought to the ED by his daughter. Initial presentation in the ED vitals normotensive afebrile.
Patient seemed confused why he is in the hospital as he has a history of Alzheimer's disease. In the ED azithromycin and ceftriaxone was started for suspected pneumonia. Chest x-ray showed right upper lobe pneumonia. Patient was not in acute
acute hypoxic respiratory failure his SpO2 was above 92 on room air . Patient did not require oxygen over the hospital stay . Azithromycin was switched to doxycycline 100 mg twice daily PO.with the hospital course patient's WBC improved, afebrile
. Patient also became progressively angry while asking more questions due to agitation his blood pressure was fluctuating. However patient was hemodynamically stable. For Alzheimer's disease patient was taking donepezil, sertraline and trazodone.
Mental status did not change significantly. Patient was confused as to why he is here but he remained alert oriented to time place and person. On the day of discharge patient was hemodynamically stable, no recent events noted. We will discharge
patient on oral antibiotics.
Vital signs
Blood pressure 128/61 Pulse 55 RR 18 Temp 98.2 O2 sat 95 on room air
Right upper lobe pneumonia
Oral Keflex 500 mg twice daily for 10 days and
Oral doxycycline 100 mg twice daily for 10 days
Hyponatremia
Resolved.
Hyperlipidemia
Continue atorvastatin
Hypertension
Continue lisinopril 5 mg
Alzheimer's disease
Continue donepezil trazodone and sertraline
Discharge Plan
-
Patient Disposition: Assisted Living
Discharge Diagnosis/Procedures: Right upper lobe pneumonia
Hyponatremia
Hyperlipidemia
Hypertension
Alzheimer's disease
Condition: Fair
Diet: Low Cholesterol
Activity: No restrictions
Blood Work: cbc in one week
Other Services: PT and OT
Referrals:
UNKNOWN - PT DOES,NOT KNOW [Family Provider] -
Additional Discharge Medication Instructions: Cephalexin 500 mg 1 tablet to be given 2 times a day for 10 days
Doxycycline hyclate 100 mg, 1 tablet to be given 2 times a day for 10 days
Pneumonia vaccine to be given 2 weeks after the antibiotic course is finished
Prescriptions:
New
cephalexin 500 mg tablet
500 mg PO BID 10 Days Qty: 20 0RF
doxycycline hyclate 100 mg tablet
100 mg PO BID 10 Days Qty: 20 0RF
Continued
trazodone 50 mg Tablet
50 mg PO HS
donepezil 10 mg Tablet
20 mg PO QPM
cyanocobalamin (vitamin B-12) 1,000 mcg Tablet
1,000 mcg PO DAILY
cholecalciferol (vitamin D3) 25 mcg (1,000 unit) Tablet
25 mcg PO DAILY
atorvastatin 20 mg tablet
20 mg PO QPM
sertraline 100 mg tablet
100 mg PO DAILY
aspirin 81 mg Tablet,Delayed Release (Dr/Ec)
81 mg PO DAILY
lisinopril 5 mg tablet
5 mg PO DAILY
diltiazem HCl 30 mg tablet
30 mg PO BID
Discharge Orders:
Discharge Patient (As Directed); Ordered 08/06/23
Ordered By: Mariola Parr
Discharge Date and Time
Discharge Date/Time: 08/06/23 14:14
Print Language: STATELESS
== END 2023-08-06 14:14 | DRG 194 ==
LOC: 4 EAST ACU 13:01
PROVIDERS: Physician Assistant Medical; Student in an Organized Health Care Education/Training Program; ADMITTING PHYSICIAN Hospitalist; ATTENDING PHYSICIAN Internal Medicine; EMERGENCY PHYSICIAN Emergency Medicine
DX: J18.9 Pneumonia, unspecified organism (principal); E87.1 Hypo-osmolality and hyponatremia; F02.811 Dementia in other diseases classified elsewhere, unspecified severity, with agitation; Z11.52 Encounter for screening for COVID-19; G30.9 Alzheimer's disease, unspecified; E78.00 Pure hypercholesterolemia, unspecified; I10 Essential (primary) hypertension
CPT/HCPCS: 71045; 71250; 80048; 83880; 85025; 87811; 96374; 96375; 97163; 99285

== ENCOUNTER 2023-12-12 23:11 | Observation (INO) | payer OTHER, SELFPAY ==
[2023-12-12 20:18] VITALS: BP 127/69
--- NOTE | 2023-12-12 21:10 | EDRN ---
RN spoke w/ Martin, from [facility]. Martin reports pt. has intermittently becoming agitated the past few days, reports pt. is normally confused as he has hx. of dementia, but is not always combative. Martin reports pt.'s also at "facility, recently was in hospital and staff reports pt. has been increasingly agitated since her departure. Pt. arrives to ED w/o complaints, is at baseline mental status, has been cooperative w/ staff here.
--- NOTE | 2023-12-12 21:47 | ED.MUSCINJ ---
HPI-Injury
General
Chief Complaint: Fall
Source: patient
Exam Limitations: none
Time Seen by Provider: 12/12/23 20:18
Nursing documentation reviewed up to this point in time: agreed with
History of Present Illness-Injury
Is this injury a work related problem?: No
Is pt an associate of [facility]?: No
Initial Injury comments:
[place] to ED from [place] s/p fall. According to EMS and Tri (RUBÉN), patient became increasingly agressive today. Police were called to help diffuse situation. History of dementia. He has had prior episodes of aggressive behavior, has been
inpatient at [facility]. After episode he had a witnessed fall. Hit back of head. NO LOC. Brought to ED via EMS for eval. NO blood thinners. Facility does not feel that he can return due to his aggressiveness. WOuld like him
placed at a [facility] facility. He is alert and cooperative on arrival. FOllowing directions
Past History
Past History
ED Past Medical History: HTN, Hypercholesterolemia and Other (Alzheimer's)
ED Past Surgical History: Orthopedic
Social History
Tobacco: Non-smoker
Alcohol: None
Drug: None
Personal:
Living: other (dementia care facility)
Review of Systems
Review of Systems
Allergies reviewed?: Yes
All Other Systems: ROS reviewed and negative except as documented in HPI and ROS
Constitutional: Reports no symptoms
EENT: Reports no symptoms
Respiratory: Reports no symptoms
Cardiac: Reports no symptoms
ABD/GI: Reports no symptoms
: Reports no symptoms
Musculoskeletal: Reports joint pain (right hip pain)
Skin: Reports no symptoms
Neurological: Reports no symptoms
Psychiatric: Reports no symptoms
Musculoskeletal Injury Exam
Musculoskeletal Injury Exam
Right Hip:
Pain with Movement?: None
Tender to palpation?: None
Soft tissue swelling?: None
External deformity and angulation?: None
Joint effusion?: None
Contusion?: Mild
Hematoma-local bleeding into tissue?: None
Strain- Sprain- Tear (Connective tissue injury)?: None
Crepitus with movement?: No
Joint instability?: No
Malalignment/deformity?: No
Range of motion: Full
Distal skin color and temperature: normal-warm & good color
Capillary Refill: normal
Normal distal neurovascular exam?: Yes
Phy Exam
General Physical Exam
General Presentation: well appearing and no apparent distress
General age: appears stated age
General Skin: warm and dry
General Habitus: normal
General Mental: usual mental status
General Hydration: appears well hydrated
Neurological Exam
Neurological Exam: alert, CN II-XII intact, no motor deficits, no sensory deficits, speech normal and normal gait
Musculoskeletal Exam
Musculoskeletal Exam: full ROM and neuro vasc intact
Skin Exam
Skin Exam: normal color, warm/dry and no rash
Psychiatric Exam
Psychiatric Exam: normal mood/affect
Injury Course
Orders/Labs/Results
Orders:
Orders
12/12/23 20:28
CT Cervical Spine W/o Iv Contr Urgent
Comment:
Reason For Exam: fall
CT Head W/o Iv Contrast Urgent
Comment:
Reason For Exam: fall
12/12/23 20:49
CR Hip - RT w/wo Pel 2-3 Vw* Urgent
Comment:
Reason For Exam: fall
Include a pelvis x-ray?: Yes
12/12/23 22:02
Divalproex Delayed Rel. 12 Hr [Depakote (12 Hr Release)] 125 mg PO NOW STA
Quetiapine Fumarate [Seroquel] 25 mg PO NOW STA
12/12/23 22:16
Urine Reflex Culture from UA [Urinalysis Reflex To Culture] Routine
12/12/23 22:19
Basic Metabolic Panel Urgent
CBC/No Diff [Complete Blood Count/No Diff] Urgent
12/12/23 22:29
Admit/Transfer Patient As Directed
Co-Sign Provider:
Level of Care: Observation services
Assign to:: Medical/Surgical
Physician / Group: htay
Diagnosis: acute behavioral dysfunction, HX Dementia, Fall
12/12/23 22:33
Code Status As Directed
Resuscitation Status: Full Code
12/12/23 22:50
Potassium Routine
Valproic Acid Level [Depakane] Routine
Abnormal Lab Results
12/12/23 12/12/23
22:19 22:50
RBC 3.87 L 10^6/uL
(4.70-6.10)
Hgb 11.6 L g/dL
(13.0-18.0)
Hct 33.9 L %
(39.0-52.0)
MPV 12.2 H fL
(7.4-10.4)
BUN 34 H mg/dl
(9-20)
Valproic Acid 37.3 L ug/ml
(50.0-120.0)
12/12/23 22:19
12/12/23 22:50
*Critical Care Note
Total Time (30-74mins, 75-104mins- exclusive of procedures): Not Applicable
Update Note
Update Note:
Facilty states they are unable to take him back at this time due to his aggression. Requesting case management consult, transfer to [facility] facility. Will admit to hospitalist, case management consult. DON at [facility] [phone]
ED Attending Note
-
Portions of this chart may have been created with voice recognition software.� Occasional wrong word or��sound alike� substitutions may have occurred due to the inherent limitations of voice recognition software.
Discharge Plan
Departure
Patient Disposition: Admit
Date of Disposition: 12/12/23
Time of Disposition: 22:01
Presentation/result/management discussed w/ accepting MD/DO: Hospitalist
Patient with high blood pressure during this ER visit?: No
Condition: Fair
Covid-19: Not Applicable
Discharge Problem:
Head injury, Aggression
Interventions
Interventions:
*Risk Screen - Suicide Last Done: 12/12/23 20:18
*General Assessment Last Done: 12/12/23 20:18
*Neglect/Abuse Screening Last Done: 12/12/23 20:18
ED- Fall Risk Assessment Last Done: 12/12/23 23:05
ED-Musculoskeletal Assessment Last Done: 12/12/23 20:35
ED- Neurological Assessment Last Done: 12/12/23 23:05
ED-Psychological Assessment Last Done: 12/12/23 20:35
ED-Skin Assessment Last Done: 12/12/23 23:05
--- NOTE | 2023-12-12 22:15 | HPS.HSE ---
Family Physician
-
Family Physician: NOT KNOW UNKNOWN - PT DOES
Chief Complaint
-
s/p witnessed fall. Hit back of head. Aggressive behavior
History of Present Illness
HPI
88M NH Res HX Alzheimer's dementia sent to ER s/p witnessed fall. Hit back of head. No LOC. Not on blood thinner.
Very poor and limited historian. Becomes progressively more angry when asked more questions.
According to EMS and Tri (RUBÉN), patient became increasingly agressive today. Police were called to help diffuse situation.
HX prior episodes of aggressive behavior, has been inpatient at [facility]
Facility does not feel that he can return due to his aggressiveness.
He is alert and cooperative on arrival. Following directions
Cooperated for Hip XR, HCT and Cx spine CT
Medical History
Past Medical History
Past Medical History: Reports Other
Additional Past Medical History:
Alzheimer's dementia
Essential hypertension
Hyperlipidemia
Past Surgical History: Reports Orthopedic
Social History
Tobacco: Non-smoker
Alcohol: None
Drug: None
Family History
Family History: Not pertinent
Allergies / Home Medications
Allergies reflects when Allergies were last updated in [employer].
Home Medications with original date entered in [employer]
Allergy/Medication List:
Allergies
Allergy/AdvReac Type Severity Reaction Status Date / Time
Penicillins Allergy Unknown Verified 06/19/23 10:42
NKA - No Known Allergies Allergy Unknown Uncoded 06/19/23 10:42
Home Medications
cholecalciferol (vitamin D3) 25 mcg (1,000 unit) tablet 25 mcg PO DAILY 05/16/23
cyanocobalamin (vitamin B-12) 1,000 mcg tablet 1,000 mcg PO DAILY 05/16/23
donepezil 10 mg tablet 20 mg PO QPM 05/16/23
trazodone 50 mg tablet 50 mg PO HS 05/16/23
aspirin 81 mg tablet,delayed release 81 mg PO DAILY 08/04/23
atorvastatin 20 mg tablet 20 mg PO QPM 08/04/23
diltiazem HCl 30 mg tablet 30 mg PO BID 08/04/23
lisinopril 5 mg tablet 5 mg PO DAILY 08/04/23
sertraline 100 mg tablet 100 mg PO DAILY 08/04/23
Review of Systems
-
Unable to obtain full review of systems at this time due to: Dementia
History Source: Physician
EENT: Reports No Symptoms
Respiratory: Reports No Symptoms
Cardiac: Reports No Symptoms
Abdomen/GI: Reports No Symptoms
: Reports No Symptoms
Musculoskeletal: Reports No Symptoms
Skin: Reports No Symptoms
Neurological: Reports No Symptoms
Endocrine: Reports No Symptoms
Hematologic/Lymphatic: Reports No Symptoms
Psych: Reports See HPI, Dementia and Other (aggressive )
Physical Exam
Vital Signs
Vital Signs
Temp Pulse Resp BP Pulse Ox
96.9 F L 63 18 127/69 97
12/12/23 20:18 12/12/23 20:18 12/12/23 20:18 12/12/23 20:18 12/12/23 20:18
Physical Exam
General: Well Developed, Well Nourished, No Apparent Distress and Comfortable
HEENT: NormoCephalic, Anicteric and Moist mucous membranes
Respiratory: Rhonchi
Cardiac: S1/S2 and Regular Rhythm
GI: Soft, Non Tender and Non Distended
Genito-urinary: Deferred by me
Musculoskeletal: No Clubbing, No Cyanosis and No Edema
Skin: Warm and Dry
Neuro: Awake and Alert
Hematologic/Lymphatic: No Lymphadenopathy
Psych: Calm
Impression/Plan
-
Vital Signs
Temp Pulse Resp BP Pulse Ox
96.9 F L 63 18 127/69 97
12/12/23 20:18 12/12/23 20:18 12/12/23 20:18 12/12/23 20:18 12/12/23 20:18
Pending admission Labs: CBC, CMP, Valproate level , UA
Rt Hip w/wo Pel 2-3 Vw
- Mild to moderate degenerative changes of the right hip without evidence for acute fracture or dislocation.
- Mild degenerative changes of the pubis symphysis, left hip, bilateral sacroiliac joints and partially visualized lower lumbar spine.
- Soft tissues are grossly unremarkable.
HCT and CT Cx spine
1. No acute intracranial abnormality noted.
2. No acute fracture or subluxation of the cervical spine. Multilevel de
Last hospitalist admission:Date of Admission: 08/04/23 - Date of Discharge: 08/06/23
Discharge Diagnosis
Right upper lobe pneumonia
Hyponatremia
Hyperlipidemia
Hypertension
Alzheimer's disease
ASSESSMENT & PLAN
S/P witnessed fall with hit back of the head.
- NEG HCT. NEG Cx spine CT. HEG Rt Hip and pelvis XR
- Alert and cooperative on arrival and following directions
- At NH, noted acute behavioral dysfunction with aggression/ Prior HX behavioral dysfunction maintain on Seroquel HS and Depakote sprinkles
- HX Alzheimer's dementia
- [place] Seroquel to 25mg BID plus HS - hold for sedation
- check CBC, CMP, Valproate level , UA to eval for acute TME
- Psych consult to evaluate [facility] placement
HX mild hyponatremia
- await admission BMP
Essential hypertension
-stable.
Hyperlipidemia
-on atorvastatin.
DVT Px: SCD for now while awaiting admission labs
Code: Full code
OBS MS
[2023-12-12] MEDS: DEPAKOTE (12 HR RELEASE) 125 MG PO (22:23)
[2023-12-12] MEDS: SEROQUEL 25 MG PO (22:24)
[2023-12-12 22:25] VITALS: BP 124/67
[2023-12-12 22:27] LABS: Hematocrit 33.9 % (39.0-52.0); Hemoglobin 11.6 g/dL (13.0-18.0); Mean Corp Hgb Conc. 34.2 g/dL (33.0-37.0); Mean Corpuscular Volume 87.6 fL (80.0-94.0); Mean Platelet Volume 12.2 fL (7.4-10.4); Platelet Count 132 10^3/uL (130-400); Red Blood Cell Count 3.87 10^6/uL (4.70-6.10); Red Cell Dist. Width 13.9 % (11.5-14.5); White Blood Cell Count 8.4 10^3/uL (4.8-10.8)
[2023-12-12 22:50] LABS: Blood Urea Nitrogen 34 mg/dl (9-20); Calcium 9.8 mg/dl (8.4-10.2); Carbon Dioxide 26 mmol/L (22-30); Chloride 105 mmol/L (98-107); Glucose 98 mg/dl (70-99); Sodium 139 mmol/L (135-145); eGFR > 60.00
[2023-12-12 23:02] VITALS: BP 127/64
[2023-12-12 23:14] LABS: Potassium 3.9 mmol/L (3.5-5.1)
[2023-12-12 23:18] LABS: Depakane 37.3 ug/ml (50.0-120.0)
[2023-12-13 00:15] VITALS: BP 145/94; BMI 19.9
--- NOTE | 2023-12-13 00:15 | PTCARENOTE ---
Pt arrived onto floor @0015. Pt was a puller out, with no complaints of pain or SOB at this time. Pt oriented to room and call webster; will continue to monitor.
[2023-12-13 07:40] VITALS: BP 141/51
[2023-12-13] MEDS: ASPIR LOW (ENTERIC COATED) 81 MG PO (08:47)
[2023-12-13] MEDS: ZOLOFT 100 MG PO (08:47)
[2023-12-13] MEDS: CARDIZEM 30 MG PO ×2 (08:47→20:05)
[2023-12-13] MEDS: DEPAKOTE SPRINKLE 125 MG PO (08:47)
[2023-12-13] MEDS: ZESTRIL 5 MG PO (08:47)
--- NOTE | 2023-12-13 11:21 | CM ---
Addendum entered by Elaina Acharya 12/13/23 14:25:
Psychiatry recommend wait and see as they adjust his medication, director case management will send referral to [facility] facility as back up plan.
Original Note:
Patient was admitted under OBS, MACKEY letter provided to patient. teaching manager met with patient briefly and spoke with daughter, Gala and Tri [place] from [facility] where patient lives with his spouse, patient is independent
with adl's and uses a walker with ambulation, patient has had some agitation/behavioral disturbances and was recently started on Depakote, patient was at [facility] about 6 months ago and patient may benefit from [facility] inpatient
stay again per patient's daughter, Gala. teaching manager is waiting on psychiatry evaluation. teaching manager did reach out to Haroldo [phone] in admissions at [facility] and they have no beds.
Pharmacy: [facility]
PCP: Dr. Cristhian Olson.
Plan; Await recommendations from Psychiatry, and then director case management will make appropriate referrals.
--- NOTE | 2023-12-13 12:29 | CON.MD ---
Consultation - Medical
-
patient seen chart reviewed. discussed w nursing. the patient is an 88 year old male who was admitted after a fall at his assisted living facility. he has been dx with dementia and current medications include trazodone 50 mg q hs donepezil 20 mg
daily zoloft 100 mg daily depakote 125 mg bid and seroquel 25 mg q hs. he was hospitalized at some point on [facility] where he resides claims his behavior is such that at present he cannot return there bc of aggression.
nursing here describes that patient can be irritable and angry when he is redirected. my experience with him was somewhat different. i spent about forty minutes or so talking with him about his life and his interests and he was quite pleasantly
interactive. he was clearly cognitively disabled. he frequently could not remember names dates and places but he did get his point across. he also had a hard time remembering his first name and the date '....' [place] he could be in [place]. he did not appear depressed nor would he admit to depression but he did say he is not happy w his living situation 'they are all old women' who have essentially not much to talk about. he denied
thoughts of harming himself. he said he enjoys talking to people who have something to say that interests him. there was nothing to suggest misael psychosis
past psych hx see medications above patient dx w dementia. recent hosp on [facility]
past med hx recent fall cat brain and spine show no new findings. hgb 11.6 bun 34 cr 1.1 qtc 431 hx consitpation prostate ca tcp pvc's first debree av block htn hld lafb qtc 431 hx pneumonia and hyponatremia
fh denied
substance abuse denied
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 traveled all over the [place]. . does not reside w him. has daughters regrets never having a son to teach about baseball. he is an avid [employer] fan.
mse patient is alert though not oriented to place and time and barely to person. took him some time to recall his name. speech a little slowed at times bc it would take him some time to remember things thought process largely goal oriented. mood
is neutral. affect ok no si no overt psychosis. this was obviously a very intelligent man now impaired by dementia insight judgment lacking
dx neurocognitve disorder reportedly w behavioral disturband
plan would continue meds as they are except increase depakote to 250 mg bid and follow level. would consider prn of seroquel but aricept could increase qtc combined w seroquel. would use additional seroquel on stat basis only for now 12.5 mg and
then monitor qtc. if no change could increase seroquel dose if needed. qtc currently is 431.alternatively could consider switch to risperdal which does not affect the qtc but has more eps as potential side effect. patient w hx hyponatremia. watch
sodium as he is on ssri which can contribute to low sodium. will follow
[2023-12-13 15:00] VITALS: BP 131/58
[2023-12-13 15:32] VITALS: BP 131/58
[2023-12-13 16:29] LABS: Urine Albumin Negative (Neg - Trace); Urine Bilirubin Negative (Negative); Urine Character Clear (Clear); Urine Color Yellow; Urine Glucose Negative (Negative); Urine Ketone Negative (Negative); Urine Leukocyte Negative (Negative); Urine Nitrite Negative (Negative); Urine Occult Blood Negative (Negative); Urine Specific Gravity 1.005 (<1.030); Urine Urobilinogen Negative (Neg - 1+)
--- NOTE | 2023-12-13 17:49 | W.PN.HOSP.TC ---
Today's Communication/Plan
-
Depakote increased
Monitor electrolytes
Monitor QTc
Appreciate Psychiatry
Assessment / Plan
Assessment / Plan
Physical Exam
General: Well Developed, Well Nourished, No Apparent Distress and Comfortable
HEENT: NormoCephalic, Anicteric and Moist mucous membranes
Respiratory: Rhonchi
Cardiac: S1/S2 and Regular Rhythm
GI: Soft, Non Tender and Non Distended
Genito-urinary: Deferred by me
Musculoskeletal: No Clubbing, No Cyanosis and No Edema
Skin: Warm and Dry
Neuro: Awake and Alert
Hematologic/Lymphatic: No Lymphadenopathy
Psych: Calm
Assessment/Plan
88 year old male who was admitted after falling at his [facility].
S/P witnessed fall with hit back of the head
Neurocognitve disorder reportedly w behavioral disturbance
- NEG HCT. NEG Cx spine CT. HEG Rt Hip and pelvis XR
- Alert and cooperative on arrival and following directions
- At [place], noted acute behavioral dysfunction with aggression/ Prior HX behavioral dysfunction maintain on Seroquel HS and Depakote sprinkles
- HX Alzheimer's dementia
- Depakote increased, appreciate psychiatry
- Monitor QTc given the medications patient is taking
- Psych consult to evaluate [facility] placement
Dementia
HX mild hyponatremia
- Monitor BMP given patient is on SSRIs
Essential hypertension
-stable.
Hyperlipidemia
-on atorvastatin.
Last hospitalist admission:Date of Admission: 08/04/23 - Date of Discharge: 08/06/23
Discharge Diagnosis
History of right upper lobe pneumonia
Hypertension - continue home Diltiazem and Lisinopril
Alzheimer's disease
DVT Prophylaxis: Lovenox. SCDs.
Code Status: Full code
Anticipated Discharge: > 48 hours
Subjective/Interval History
-
Date of Service: December 13, 2023
Patient was seen and examined. No new symptoms or complaints.
Objective Data
-
Vital Signs:
Vital Signs
Temp Pulse Resp BP Pulse Ox
97.6 F 56 14 131/58 100
12/13/23 15:00 12/13/23 15:00 12/13/23 15:00 12/13/23 15:00 12/13/23 15:00
I&O
12/12/23 12/13/23 12/14/23
06:59 06:59 06:59
Intake Total 900 / 900
Balance 900 / 900
[2023-12-13] MEDS: LIPITOR 20 MG PO (18:02)
[2023-12-13] MEDS: ARICEPT 20 MG PO (18:02)
[2023-12-13] MEDS: LOVENOX 40 MG SC (18:03)
[2023-12-13] MEDS: DEPAKOTE SPRINKLE 250 MG PO (20:04)
[2023-12-13] MEDS: SEROQUEL 25 MG PO (20:48)
[2023-12-14] MEDS: ASPIR LOW (ENTERIC COATED) 81 MG PO (08:42)
[2023-12-14] MEDS: ZOLOFT 100 MG PO (08:42)
[2023-12-14] MEDS: DEPAKOTE SPRINKLE 250 MG PO (08:42)
[2023-12-14] MEDS: CARDIZEM 30 MG PO (08:42)
[2023-12-14] MEDS: ZESTRIL 5 MG PO (08:42)
[2023-12-14 08:45] VITALS: BP 128/65
--- NOTE | 2023-12-14 09:30 | PTCARENOTE ---
pt was a control team. Pt was swatting and attempting to hit this RN. Contacted the Doctor for meds to help settle him down.
[2023-12-14] MEDS: STERILE WATER FOR INJECTION 2.1 ML IM ×2 (09:46→15:45)
[2023-12-14] MEDS: ZYPREXA 2.5 MG IM ×2 (09:46→15:47)
--- NOTE | 2023-12-14 11:20 | PTCARENOTE ---
2.5 mg of Zyprexa order by worked and will message him if I need anything else. Psychologists still needs to see pt.
--- NOTE | 2023-12-14 15:41 | W.PN.UPDATE ---
Addendum entered and electronically signed by Monica De La Rosa MD 12/14/23 15:54:
Pt was again agitated and required IM zyprexa 2.5mg - changed standing medication to zydis 2.5mg BID given extent of his agitation and aggression.
Continue to monitor EKG to ensure no QTc prolongation.
Original Note:
Update Note
Progress Note Update
Pt seen at bedside - unable to engage in meaningful interview as he was sleeping, had received IM zyprexa 2.5mg due to earlier agitation. Was not redirectable this AM, yelling, attempting to hit staff, using walker to try to hit staff etc.
Qtc on 12/12 431
Depakote level 37.3
Increased seroquel to 25mg AM + 50mg HS
continue depakote 250mg BID
ordered EKG for AM to monitor QTc due to potential interaction of seroquel with donepezil
--- NOTE | 2023-12-14 16:00 | PTCARENOTE ---
pt attempted to hit staff with the walker as well as attempting to smack the aid any myself. Contacted Dr for another dose of Zyprexa which MD ordered 2.5 mg IV of. Going forward MD transitioned to scheduled dose of Zyprexa.
--- NOTE | 2023-12-14 16:41 | W.PN.HOSP.TC ---
Today's Communication/Plan
-
Zyprexa
Appreciate Psychiatry
Placement pending
Assessment / Plan
Assessment / Plan
Physical Exam
General: Not in acute distress
HEENT: Normocephalic
Respiratory: CTAB
Cardiac: S1/S2 and Regular Rhythm
GI: Soft, Non Tender and Non Distended. Positive bowel sounds.
Musculoskeletal: No Cyanosis and No Edema
Skin: Warm and Dry
Neuro: Awake and Alert
Psych: Calm
Assessment/Plan
88 year old male who was admitted after falling at his [facility].
S/P witnessed fall with hit back of the head
Neurocognitive disorder reportedly w behavioral disturbance
- NEG HCT. NEG Cx spine CT. HEG Rt Hip and pelvis XR
- Alert and cooperative on arrival and following directions
- At [place], noted acute behavioral dysfunction with aggression/ Prior HX behavioral dysfunction maintain on Seroquel HS and Depakote sprinkles
- HX Alzheimer's dementia
- Depakote increased, appreciate psychiatry
- Monitor QTc given the medications patient is taking
- PRN Zyprexa given for agitation on 12/14/23, and scheduled Zydis started: appreciate psychiatry
- Psych consult to evaluate [facility] placement
Dementia
HX mild hyponatremia
- Monitor BMP given patient is on SSRIs
Essential hypertension
-stable.
Hyperlipidemia
-on atorvastatin.
Last hospitalist admission:Date of Admission: 08/04/23 - Date of Discharge: 08/06/23
Discharge Diagnosis
History of right upper lobe pneumonia
Hypertension - continue home Diltiazem and Lisinopril
Alzheimer's disease
DVT Prophylaxis: Lovenox. SCDs.
Code Status: Full code
Anticipated Discharge: > 48 hours
Subjective/Interval History
-
Date of Service: December 14, 2023
Patient was seen and examined. He was agitated today, but became more calm with Zyprexa.
Objective Data
-
Vital Signs:
Vital Signs
Temp Pulse Resp BP Pulse Ox
97.3 F 57 18 128/65 98
12/14/23 08:45 12/14/23 08:45 12/14/23 08:45 12/14/23 08:45 12/14/23 08:45
I&O
12/13/23 12/14/23 12/15/23
06:59 06:59 06:59
Intake Total 1260 / 1260
Balance 1260 / 1260
[2023-12-14] MEDS: LOVENOX 40 MG SC (17:08)
[2023-12-14] MEDS: ARICEPT 20 MG PO (17:09)
[2023-12-14] MEDS: LIPITOR 20 MG PO (17:09)
[2023-12-14] MEDS: DEPAKOTE SPRINKLE PO ×2 (20:12→23:45)
[2023-12-14] MEDS: ZYPREXA ZYDIS (ORALLY DISINTEGRATING) PO ×2 (20:14→23:45)
[2023-12-14] MEDS: CARDIZEM PO ×2 (20:14→23:45)
--- NOTE | 2023-12-15 00:48 | PTCARENOTE ---
~20:05 Pt refused 20:00 medications. Medication education provided on what each medication was for and pt continued to refuse medications. Asked to 'take them later.' Pt refused nursing assessment. Pt only sat up to drink water then laid back down
to sleep. This RN went to administer 20:00 medications multiple times, pt refused every time. Pt continued to refuse nursing assessment. Notified [facility]. No new orders at this time. Pt refused 23:00 vital signs after multiple attempts
by nursing staff. Pt resting in bed with no signs of distress. Plan of care ongoing.
--- NOTE | 2023-12-15 07:28 | PTCARENOTE ---
Pt refused morning lab draws. Pt educated by security shift manager and day shift RN on morning labs. Pt continued to refused lab draws. Pt asked who ordered labs. Pt was told provider's name. Pt shouted that he wants to 'speak with the doctor standing right
here [pointed at ground in front of pt]. AM RN told pt he will message the provider to come speak with the pt. Pt shouted he wanted to 'speak with Gala Kathleen. She is the only person I trust.' Plan of care ongoing.
[2023-12-15] MEDS: ZYPREXA ZYDIS (ORALLY DISINTEGRATING) 2.5 MG PO ×2 (07:33→19:46)
[2023-12-15 08:20] VITALS: BP 123/80
--- NOTE | 2023-12-15 09:07 | CM ---
Chart reviewed and counseling case manager will await updated notes from psychiatry and recommendations, call placed and [facility]
Plan; Await updated notes from psychiatry on recommendations for patient.
[2023-12-15] MEDS: DEPAKOTE SPRINKLE PO (10:02)
[2023-12-15] MEDS: ASPIR LOW (ENTERIC COATED) PO (10:02)
[2023-12-15] MEDS: ZESTRIL PO (10:02)
[2023-12-15] MEDS: CARDIZEM PO (10:02)
[2023-12-15] MEDS: ZOLOFT PO (10:03)
--- NOTE | 2023-12-15 10:03 | PTCARENOTE ---
after giving the pt his Zyprexa in apple sauce, which he took. He stated ' No more pills.'
I went in an hour later and the pt stated that he would not take the pills.
I checked not given and refused for the pill administration.
Will try again later, if the pt calms down with the Zyprexa.
--- NOTE | 2023-12-15 13:49 | W.PN.HOSP.TC ---
Today's Communication/Plan
-
He refused meds and labwork
Nurse will try again when he is more calm
Appreciate psychiatry
Assessment / Plan
Assessment / Plan
Physical Exam
General: Not in acute distress
HEENT: Normocephalic
Respiratory: CTAB
Cardiac: S1/S2 and Regular Rhythm
GI: Soft, Non Tender and Non Distended. Positive bowel sounds.
Musculoskeletal: No Cyanosis and No Edema
Skin: Warm and Dry
Neuro: Awake and Alert
Psych: Calm
Assessment/Plan
88 year old male who was admitted after falling [facility] his [facility].
S/P witnessed fall with hit back of the head
Neurocognitive disorder reportedly w behavioral disturbance
- NEG HCT. NEG Cx spine CT. HEG Rt Hip and pelvis XR
- Alert and cooperative on arrival and following directions
- At [place], noted acute behavioral dysfunction with aggression/ Prior HX behavioral dysfunction maintain on Seroquel HS and Depakote sprinkles
- HX Alzheimer's dementia
- Depakote increased, appreciate psychiatry
- Monitor QTc given the medications patient is taking
- PRN Zyprexa given for agitation on 12/14/23, and scheduled Zydis started: appreciate psychiatry
- Psych consult to evaluate [facility] placement
Dementia
HX mild hyponatremia
- Monitor BMP given patient is on SSRIs
Essential hypertension
-stable.
Hyperlipidemia
-on atorvastatin.
Last hospitalist admission:Date of Admission: 08/04/23 - Date of Discharge: 08/06/23
Discharge Diagnosis
History of right upper lobe pneumonia
Hypertension - continue home Diltiazem and Lisinopril
Alzheimer's disease
DVT Prophylaxis: Lovenox. SCDs.
Code Status: Full code
Anticipated Discharge: > 48 hours
Subjective/Interval History
-
Date of Service: December 15, 2023
Patient was seen and examined. He reported no new significant symptoms. Per nurse, he refused labwork and meds.
Objective Data
-
Vital Signs:
Vital Signs
Temp Pulse Resp BP Pulse Ox
97.6 F 70 16 123/80 99
12/15/23 08:20 12/15/23 08:20 12/15/23 08:20 12/15/23 08:20 12/15/23 08:20
I&O
12/14/23 12/15/23 12/16/23
06:59 06:59 06:59
Intake Total 1260 / 1260 500 / 500
Balance 1260 / 1260 500 / 500
[2023-12-15 14:25] LABS: Blood Urea Nitrogen 32 mg/dl (9-20); Calcium 10.7 mg/dl (8.4-10.2); Carbon Dioxide 32 mmol/L (22-30); Chloride 101 mmol/L (98-107); Estimated Creatinine Clearance 42 ml/min; Glucose 102 mg/dl (70-99); Magnesium 2.2 mg/dl (1.6-2.3); Potassium 4.2 mmol/L (3.5-5.1); Sodium 141 mmol/L (135-145); eGFR 58.53
[2023-12-15 15:25] VITALS: BP 129/67
--- NOTE | 2023-12-15 16:36 | W.PN.UPDATE ---
Update Note
Progress Note Update
Pt has been calmer over past 24 hrs - was pleasant on interview today, though remains quite confused and disoriented. Was quite talkative and smiling/laughing at times. Memory remains poor, does not know where he is consistently and at times some
mild paranoia but no behavioral disturbances, has not needed PRNs since yesterday.
Continue to monitor EKG to ensure no QTc prolongation, no medication changes at this time.
[2023-12-15] MEDS: ARICEPT 20 MG PO (17:18)
[2023-12-15] MEDS: LIPITOR 20 MG PO (17:18)
[2023-12-15] MEDS: LOVENOX 40 MG SC (17:18)
[2023-12-15] MEDS: DEPAKOTE SPRINKLE 250 MG PO (19:45)
[2023-12-15] MEDS: CARDIZEM 30 MG PO (19:46)
[2023-12-15 20:14] VITALS: BP 137/67
[2023-12-15 23:29] VITALS: BP 107/57
[2023-12-16] MEDS: ZESTRIL 5 MG PO (07:28)
[2023-12-16] MEDS: ZYPREXA ZYDIS (ORALLY DISINTEGRATING) 2.5 MG PO (07:28)
[2023-12-16] MEDS: DEPAKOTE SPRINKLE 250 MG PO (07:29)
[2023-12-16] MEDS: ZOLOFT 100 MG PO (07:29)
[2023-12-16] MEDS: CARDIZEM 30 MG PO (07:29)
[2023-12-16] MEDS: ASPIR LOW (ENTERIC COATED) 81 MG PO (07:29)
[2023-12-16 08:00] VITALS: BP 129/57
[2023-12-16 08:20] LABS: Blood Urea Nitrogen 29 mg/dl (9-20); Calcium 10.2 mg/dl (8.4-10.2); Carbon Dioxide 28 mmol/L (22-30); Chloride 104 mmol/L (98-107); Estimated Creatinine Clearance 42 ml/min; Glucose 85 mg/dl (70-99); Potassium 4.3 mmol/L (3.5-5.1); Sodium 142 mmol/L (135-145); eGFR 58.53
--- NOTE | 2023-12-16 08:35 | W.PN.HOSP.TC ---
Addendum entered and electronically signed by Aidee Kinsey MD 12/16/23 16:14:
Addendum
d/w onsite case manager, reviewed psych note
Pt needs inpt psych facility
COVID test is negative
dc to [facility]
Total discharge time spent to see the patient, examine the patient on the floor, review data and lab results, discuss discharge plan with patient, onsite case manager, nursing staff around 65 minutes
Original Note:
Today's Communication/Plan
-
c/w oral medications
EKG , QT looks good
Assessment / Plan
Assessment / Plan
Physical Exam
General: Not in acute distress
HEENT: Normocephalic
Respiratory: CTAB
Cardiac: S1/S2 and Regular Rhythm
GI: Soft, Non Tender and Non Distended. Positive bowel sounds.
Musculoskeletal: No Cyanosis and No Edema
Skin: Warm and Dry
Neuro: Awake and Alert
Psych: Calm
Assessment/Plan
88 year old male who was admitted after falling at his [facility].
S/P witnessed fall with hit back of the head
Neurocognitive disorder reportedly w behavioral disturbance
- NEG HCT. NEG Cx spine CT. HEG Rt Hip and pelvis XR
- Alert and cooperative on arrival and following directions
- At [place], noted acute behavioral dysfunction with aggression/ Prior HX behavioral dysfunction maintain on Seroquel HS and Depakote sprinkles, currently is doing well and cooperative
- HX Alzheimer's dementia
- Depakote increased, 250mg BID.
-c/w Zoloft, Aricept
- Monitor QTc given the medications patient is taking
- c/w Zyprexa 2.5 mg BID.
- Psych consulted to evaluate [facility] placement
Dementia
HX mild hyponatremia
- Monitor BMP given patient is on SSRIs
Essential hypertension
-stable.
Hyperlipidemia
-on atorvastatin.
Last hospitalist admission:Date of Admission: 08/04/23 - Date of Discharge: 08/06/23
Discharge Diagnosis
History of right upper lobe pneumonia
Hypertension - continue home Diltiazem and Lisinopril
Alzheimer's disease
DVT Prophylaxis: Lovenox. SCDs.
Code Status: Full code
Total time spent to see the patient, examine the patient on the floor, review data and lab results, discuss treatment plan with patient, nursing staff around 55 minutes
Anticipated Discharge: > 48 hours
Subjective/Interval History
-
Date of Service: December 16, 2023
Objective Data
-
Labs:
Laboratory Results
12/16/23
06:59
Sodium 142
Potassium 4.3
Chloride 104
Carbon Dioxide 28
BUN 29 H
Creatinine 1.2
Glucose 85
Calcium 10.2
Vital Signs:
Vital Signs
Temp Pulse Resp BP Pulse Ox
97.4 F 54 24 129/57 100
12/16/23 08:00 12/16/23 08:00 12/16/23 08:00 12/16/23 08:00 12/16/23 08:00
I&O
12/15/23 12/16/23 12/17/23
06:59 06:59 06:59
Intake Total 500 / 500 840 / 840
Balance 500 / 500 840 / 840
--- NOTE | 2023-12-16 09:47 | CM ---
Addendum entered by Elaina Acharya 12/16/23 15:31:
[facility] admissions at [facility] [phone] updated on transfer to [facility] today.
Addendum entered by Elaina Acharya 12/16/23 15:16:
Auth received for 8 days 12/16/23-12/23/23 at [facility], Auth [id number], follow up with [phone].
Ambulance pick out hand for 4:30pm.
Addendum entered by Elaina Acharya 12/16/23 14:08:
Recommendation is for inpatient [facility], patient has been accepted at [facility] admissions Haroldo [phone].
[facility]

Tax ID [id number]
Dr Dinh Ruiz

social media sr strategy manager at [facility]
Haroldo Shen [phone]
[facility]
Report [phone]

Original Note:
Chart reviewed and case sealer will await recommendations from psych to proceed with a plan for patient. Referral was sent to [facility] on Saturday and case sealer left a message for [facility] [phone] in admissions at [facility] in case
[facility] is recommended for patient.
Plan; Await psychiatry recommendations for patient.
--- NOTE | 2023-12-16 12:51 | PTCARENOTE ---
pt was seen by Dr. Crane, the psych MD. The pt stated that he had more questions for him. I walked out to the nurses station to get Dr. Crane and he stated, ' I'm done, I'm not going back in' and threw his hand up.
I went back into the pt's room to help calm the pt down to tell him the Dr wasn't coming, and the pt got extremely upset and began walking out the room to find the MD. Pt is very unsteady walking, but he refused the walker and threw the walker away
and slammed the bathroom door.
Pt began walking out of the room to the nurses station and saw DR. Crane. The Dr walked down the thayer and left. The pt continued to walk down the thayer and escalated his behavior even more
The pt eventually sat on a commode by [phone] and the control team was called.
--- NOTE | 2023-12-16 14:27 | W.PN.UPDATE ---
Update Note
Progress Note Update
Pt seen, discussed with case mgt. Pt alert, resting in bed. Pt offered his hand, shook hands, seemed initially calm, but quickly escalated, became increasingly suspicious/paranoid, critical of my demeanor and his care. Pt walked out into the
hallway, c/o being held captive, stating 'I smell a rat.' Pt was able to be calmed somewhat by female nursing staff, continued to be argumentative.
Imp: Unspecified psychotic d/o
Dementia with behavior disturbance
Rec: agree with inpatient psychiatric placement due to degree of paranoid ideation
Will continue Sertraline, Donepezil, Zyprexa Zydis (started 12/14)
[2023-12-16 15:59] VITALS: BP 131/54
[2023-12-16 16:09] LABS: COVID-19 Antigen Negative (Negative)
[2023-12-16] MEDS: LIPITOR PO (17:22)
[2023-12-16] MEDS: ARICEPT PO (17:22)
[2023-12-16] MEDS: LOVENOX SC (17:22)
--- NOTE | 2023-12-16 18:00 | PTCARENOTE ---
Control Team (CT) called while ambulation of the hallways. Pt was getting aggressive and attempting to kick and yell at everyone at the CT. Pt was wheeled back to his room in a wheel chair and placed in bed.
Transport coming for the pt 18:30-19:00
== END 2023-12-16 19:17 ==
LOC: 4 WEST ACU 23:11
PROVIDERS: Hospitalist; ADMITTING PHYSICIAN Internal Medicine; ATTENDING PHYSICIAN Internal Medicine; CONSULT PHYSICIAN Psychiatry & Neurology Psychiatry; EMERGENCY PHYSICIAN Student in an Organized Health Care Education/Training Program
DX: M25.551 Pain in right hip (principal); G30.9 Alzheimer's disease, unspecified; F02.811 Dementia in other diseases classified elsewhere, unspecified severity, with agitation; F02.818 Dementia in other diseases classified elsewhere, unspecified severity, with other behavioral disturbance; W01.198A Fall on same level from slipping, tripping and stumbling with subsequent striking against other object, initial encounter; Y93.9 Activity, unspecified; Y92.129 Unspecified place in nursing home as the place of occurrence of the external cause; S09.90XA Unspecified injury of head, initial encounter; J18.9 Pneumonia, unspecified organism; E87.1 Hypo-osmolality and hyponatremia; M47.812 Spondylosis without myelopathy or radiculopathy, cervical region; M47.816 Spondylosis without myelopathy or radiculopathy, lumbar region; M16.0 Bilateral primary osteoarthritis of hip; I10 Essential (primary) hypertension; E78.00 Pure hypercholesterolemia, unspecified; I49.1 Atrial premature depolarization; I44.4 Left anterior fascicular block; R00.1 Bradycardia, unspecified; Z88.0 Allergy status to penicillin; Z79.82 Long term (current) use of aspirin; Z11.52 Encounter for screening for COVID-19; Z91.81 History of falling
CPT/HCPCS: 70450; 72125; 73502; 80048; 80164; 81003; 82040; 83735; 84132; 85027; 87070; 87811; 93005; 99285; G0378; J2358

== ENCOUNTER 2024-02-14 08:51 | Emergency (ER) | payer OTHER, SELFPAY ==
[2024-02-14] VITALS (8 sets, daily range): BP systolic 108–143; BP diastolic 53–86; PULSE 45–53; BMI 21.5
[2024-02-14 09:17] LABS: ALT (SGPT) 33 U/L (0-50); AST (SGOT) 29 U/L (17-59); Albumin 3.5 g/dl (3.5-5.0); Alkaline Phosphatase 55 U/L (38-126); Blood Urea Nitrogen 20 mg/dl (9-20); Calcium 9.3 mg/dl (8.4-10.2); Carbon Dioxide 30 mmol/L (22-30); Chloride 106 mmol/L (98-107); Estimated Creatinine Clearance 44 ml/min; Glucose 94 mg/dl (70-99); Potassium 4.5 mmol/L (3.5-5.1); Sodium 140 mmol/L (135-145); Total Bilirubin 0.3 mg/dl (0.2-1.3); eGFR 58.53
--- NOTE | 2024-02-14 09:20 | EDRN ---
per the provider Dr. Bojorquez, this RN gave the pt a sandwich per the pts request, orthostatic vital signs were performed and were negative, charted in work list, Dr. Bojorquez notified, the pt is resting in stretcher in the lowest position, side rails up x2,
call webster within reach, HOB elevated, no s/s of distress, VS WNL, pt is eating sandwich, the pt stated to this RN, 'I will fight you if i had to', this RN calmed the pt down and the pt stated, 'I demand respect around here god sonja, give it to me
and respect me, i don't want to be here, i don't know why my daughter sent me here this is ridiculous', this RN explained to the pt that staff just wants to make sure that he is okay and the pt started to calm down, will continue to monitor the pt
closely
[2024-02-14 09:22] LABS: % Basophils 0.4 % (0-2); % Eosinophils 2.6 % (0-6); % Immature Granulocytes 0.4 % (0-0.5); % Lymphocytes 29.2 % (20.5-51.1); % Monocytes 6.9 % (1.7-9.3); % Neutrophils 60.5 % (42.2-75.2); Absolute Eosinophils 0.2 10^3/uL (0-0.7); Absolute Lymphocytes 2.7 10^3/uL (1.2-3.4); Absolute Monocytes 0.7 10^3/uL (0.1-0.6); Absolute Neutrophils 5.7 10^3/uL (1.4-6.5); Hematocrit 32.9 % (39.0-52.0); Hemoglobin 10.7 g/dL (13.0-18.0); Mean Corp Hgb Conc. 32.5 g/dL (33.0-37.0); Mean Corpuscular Hgb 31.3 pg (27.0-31.0); Mean Corpuscular Volume 96.2 fL (80.0-94.0); Mean Platelet Volume 12.5 fL (7.4-10.4); Nucleated Red Blood Cells % 0 % (-); Platelet Count 137 10^3/uL (130-400); Red Blood Cell Count 3.42 10^6/uL (4.70-6.10); White Blood Cell Count 9.4 10^3/uL (4.8-10.8)
[2024-02-14 09:28] LABS: Troponin I < 0.012 ng/ml
--- NOTE | 2024-02-14 09:58 | EDRN ---
the pt is resting in stretcher in the lowest position, side rails up x2, call webster within reach, HOB elevated, no s/s of distress, VS WNL, the pt ate his entire ER lunch box that was provider, awaiting for provider to come to the pts bedside to
update POC, the pt is calm and pleasant, the pt denies needing anything at this time, will continue to monitor the pt closely
--- NOTE | 2024-02-14 10:56 | EDRN ---
the provider Dr. Bojroquez, the pt is allowed to ambulate now, this RN unhooked the pt from the monitor and the pt was able to ambulate to the bathroom and back with no issues, the pt had no c/o light headedness and no c/o dizziness, per the pts request,
the pt got dressed into his clothes and is sitting in chair in the room, per the pts request this RN provided another ER lunch box for the pt, an an orange juice with ice, per the provider the pt is to be monitor until 1200 then a ride will be set
up for the pt, will continue to monitor the pt closely
--- NOTE | 2024-02-14 11:17 | EDRN ---
cardizem will not be administered due to the pts HR dipping into the 40's, per Dr. Bojorquez the medication was discontinued
[2024-02-14] MEDS: ZOLOFT 50 MG PO (11:19)
[2024-02-14] MEDS: DEPAKOTE (12 HR RELEASE) 250 MG PO (11:19)
--- NOTE | 2024-02-14 11:20 | EDRN ---
the pt was able to take PO medications with water with no issues, the pt requested another ER lunch box and this RN provided the pt with another one, the pt is sitting chair with no s/s of distress
--- NOTE | 2024-02-14 11:38 | EDRN ---
this RN called staff at [facility] and spoke with the receiving nurse Martin at [phone] and gave an update to Martin
--- NOTE | 2024-02-14 12:11 | ED.GENMED ---
History of Present Illness
General
Chief Complaint: Fainting Sensation
Source: patient
Exam Limitations: none
Time Seen by Provider: 02/14/24 08:59
Nursing documentation reviewed up to this point in time: agreed with
History of Present Illness
History of Present Illness:
As patient with history of dementia, presents to ED from shelter after he was found to be pale, clammy, diaphoretic, hypotensive, and bradycardic, when staff assisted him out of bed and was walking this morning. Upon arrival in ED, patient is
alert and awake, but confused. Patient has no complaints. Patient has no recollection of the events that took place prior to arrival in ED.
Past History
Past History
ED Past Medical History: HTN, Hypercholesterolemia and Other (Alzheimer's)
ED Past Surgical History: Orthopedic
Social History
Tobacco: Non-smoker
Alcohol: None
Drug: None
Personal:
Living: other (dementia care facility)
Review of Systems
Review of Systems
Allergies reviewed?: Yes
Unable to obtain full review of systems at this time due to: dementia
All Other Systems: Not applicable
Phy Exam
Physical Exam
Physical Exam:
Physical Exam
General: no apparent distress, not acutely ill. afebrile
Head: nc/at. eomi
Neck: supple. normal range of motion.
Heart: s1/s2 regular rate and rhythm, no murmur. equal radial pulses.
Lungs: no acute respiratory distress. clear bilaterally
Abdomen: normal bowel sounds. not tender.
Neuro: alert and oriented x1. no focal neurological deficits
Skin: no rash
Psychiatric: well kept. interactive and cooperative
Extremities: no edema. no calf tenderness.
Course
Orders/Labs/Results
Orders:
Orders
02/14/24 08:54
Electrocardiogram (*1) Urgent
Reason for Study: Vertigo / Dizzy
EKG- Treatment ONCE
02/14/24 08:55
Complete Blood Count/With Diff Urgent
Comprehensive Metabolic Panel Urgent
Troponin I Urgent
02/14/24 09:16
Orthostatic VS- Treatment ONCE
02/14/24 11:00
Diltiazem Sustained Release [Cardizem Sr] 30 mg PO NOW STA
Divalproex Delayed Rel. 12 Hr [Depakote (12 Hr Release)] 250 mg PO NOW STA
Sertraline HCl [Zoloft] 50 mg PO NOW STA
02/14/24 11:14
Diltiazem Sustained Release [Cardizem Sr] 30 mg PO NOW STA
Abnormal Lab Results
02/14/24
08:55
RBC 3.42 L 10^6/uL
(4.70-6.10)
Hgb 10.7 L g/dL
(13.0-18.0)
Hct 32.9 L %
(39.0-52.0)
MCV 96.2 H fL
(80.0-94.0)
MCH 31.3 H pg
(27.0-31.0)
MCHC 32.5 L g/dL
(33.0-37.0)
RDW 16.0 H %
(11.5-14.5)
MPV 12.5 H fL
(7.4-10.4)
Absolute Monos (auto) 0.7 H 10^3/uL
(0.1-0.6)
Total Protein 6.0 L g/dl
(6.3-8.2)
02/14/24 08:55
02/14/24 08:55
Vital Signs
Initial and Last Documented VS:
Initial Vital Signs
BP
108/70
02/14/24 08:57
Last Documented Vital Signs
Temp Pulse Resp BP Pulse Ox
98.5 F 59 17 137/86 96
02/14/24 09:03 02/14/24 10:30 02/14/24 10:30 02/14/24 10:26 02/14/24 10:26
MDM/Problems Addressed
MDM/Problems Addressed:
Patient observed for an extended period of time in ED and provided with multiple meals, without any complaints. Patient otherwise is afebrile, hemodynamically stable, and ambulating independently with steady gait, prior to discharge back to nursing
home. Patient, with possibly had 1 episode of vagal response, when he first from lying position, which fortunately has resolved spontaneously. As such, do not feel that any further workup is warranted at this time.
*Critical Care Note
Total Time (30-74mins, 75-104mins- exclusive of procedures): Not Applicable
ED Attending Note
-
Portions of this chart may have been created with voice recognition software.� Occasional wrong word or��sound alike� substitutions may have occurred due to the inherent limitations of voice recognition software.
Discharge Plan
Departure
Patient Disposition: Home (Routine Discharge)
Date of Disposition: 02/14/24
Time of Disposition: 12:11
Patient with high blood pressure during this ER visit?: Yes
Condition: Fair
Discharge Problem:
Near syncope
Instructions: Near Fainting (DC), Dementia ED
Prescriptions:
No Action
donepezil 10 mg Tablet
20 mg PO QPM
atorvastatin 20 mg tablet
20 mg PO QPM
sertraline 100 mg tablet
50 mg PO DAILY
diltiazem HCl 30 mg tablet
30 mg PO BID
divalproex 125 mg Capsule, Delayed Rel Sprinkle
250 mg PO BID Qty: 60 0RF
quetiapine [Seroquel] 25 mg Tablet
75 mg PO HS
omeprazole 20 mg Capsule,Delayed Release(Dr/Ec)
20 mg PO DAILY
Referrals:
UNKNOWN - PT DOES,NOT KNOW [Family Provider] -
Activity Restrictions/Additional Instructions:
As discussed, you are being discharged back to shelter for continual care.
Interventions
Interventions:
*Risk Screen - Suicide Last Done: 02/14/24 09:03
*General Assessment Last Done: 02/14/24 09:03
*Neglect/Abuse Screening Last Done: 02/14/24 09:03
ED- Fall Risk Assessment Last Done: 02/14/24 09:03
*ED COVID-19 Vaccine History Last Done: 02/14/24 09:03
*Nursing Disposition Last Done: 02/14/24 12:21
ED- Cardiac Assessment Last Done: 02/14/24 09:03
ED- Neurological Assessment Last Done: 02/14/24 09:03
Discharge Date and Time
Discharge Date/Time: 02/14/24 12:23
Print Language: SERBIAN
--- NOTE | 2024-02-14 12:20 | EDRN ---
this RN gave verbal report to Acute Care Transport staff and provided discharge papers as well as labs and EKG that Martin from [facility] previously requested, the pt is calm, pleasant, cooperative and agreeable to going with Acute Care
Transport staff
== END 2024-02-14 12:23 | disposition home or self-care (01) ==
LOC: EMR 08:51
PROVIDERS: EMERGENCY PHYSICIAN Emergency Medicine
DX: R55 Syncope and collapse (principal); I10 Essential (primary) hypertension; F02.80 Dementia in other diseases classified elsewhere, unspecified severity, without behavioral disturbance, psychotic disturbance, mood disturbance, and anxiety
CPT/HCPCS: 99284; 80053; 84484; 85025; 93005

== ENCOUNTER 2024-06-02 09:30 | Emergency (ER) | payer OTHER, SELFPAY ==
[2024-06-02 09:31] VITALS: BMI 24.2
[2024-06-02 09:32] VITALS: BP 160/65
[2024-06-02 09:42] VITALS: BP 160/65
--- NOTE | 2024-06-02 09:55 | ED.GENMED ---
History of Present Illness
General
Chief Complaint: Change in Mental Status
Source: ambulance crew and skilled nursing
Time Seen by Provider: 06/02/24 09:43
History of Present Illness
History of Present Illness:
89-year-old male brought to the emergency room this morning for being somewhat agitated and aggressive. Patient has a history of dementia. He is prescribed multiple medications which appear to be mood stabilizers. He offers no complaints here.
When not stimulated he is calm but at attempts to draw blood he does become a bit resistant. Patient unable to provide any substantive history
Past History
Past History
ED Past Medical History: HTN, Hypercholesterolemia and Other (Alzheimer's)
ED Past Surgical History: Orthopedic
Social History
Tobacco: Non-smoker
Alcohol: None
Drug: None
Personal:
Living: other (dementia care facility)
Phy Exam
Physical Exam
Physical Exam:
General: Awake, Alert, Oriented X1. No acute distress. Appears stated age
Vitals: unremarkable
Head: Atraumatic
Eyes: Pupils equal, EOMI
Throat: Airway intact, no exudates
Neck: Trachea midline
Lungs: Clear and equal b/l
Heart: Regular rate, no murmurs
Abd: Soft, Nontender, No pulsatile mass
Neuro: Cranial nerves intact, muscle strength equal bilaterally
Skin: Warm, dry, no rash
Extremities: pulses equal b/l, no edema
Course
Orders/Labs/Results
Orders:
Orders
06/02/24 09:51
CMP [Comprehensive Metabolic Panel] Urgent
Complete Blood Count/With Diff Urgent
Abnormal Lab Results
06/02/24
09:51
RBC 4.11 L 10^6/uL
(4.70-6.10)
Hgb 12.4 L g/dL
(13.0-18.0)
Hct 37.6 L %
(39.0-52.0)
MPV 12.2 H fL
(7.4-10.4)
Absolute Neuts (auto) 8.9 H 10^3/uL
(1.4-6.5)
Absolute Lymphs (auto) 0.8 L 10^3/uL
(1.2-3.4)
Neutrophils % 87.6 H %
(42.2-75.2)
Lymphocytes % 7.8 L %
(20.5-51.1)
BUN 30 H mg/dl
(9-20)
Glucose 123 H mg/dl
(70-99)
06/02/24 09:51
06/02/24 09:51
Vital Signs
Initial and Last Documented VS:
Initial Vital Signs
Temp Pulse Resp BP Pulse Ox
98.1 F 66 16 160/65 96
06/02/24 09:32 06/02/24 09:32 06/02/24 09:32 06/02/24 09:32 06/02/24 09:32
Last Documented Vital Signs
Temp Pulse Resp BP Pulse Ox
98.1 F 78 17 158/66 96
06/02/24 09:32 06/02/24 12:45 06/02/24 12:45 06/02/24 11:00 06/02/24 09:50
MDM/Problems Addressed
Differential Diagnosis Includes:
Infectious process, agitation from dementia, electrolyte abnormality
MDM/Problems Addressed:
Patient is awake, somewhat agitated when blood was drawn but otherwise redirectable. He has a nonfocal neurologic exam, normal vital signs. He is afebrile. Labs show normal white count, essentially normal hemoglobin and chemistries which were all
very reassuring. There is no evidence for an unstable process ongoing at this time. I do not believe a straight cath for urine is indicated as the patient would become quite agitated and I think the chances of it finding a true infection are low.
Overall now that the patient is calm I believe it is in his best interest to be discharged back to his facility.
*Pulse Oximetry
Patient hypoxic: no
*Critical Care Note
Total Time (30-74mins, 75-104mins- exclusive of procedures): Not Applicable
ED Attending Note
-
Portions of this chart may have been created with voice recognition software.� Occasional wrong word or��sound alike� substitutions may have occurred due to the inherent limitations of voice recognition software.
Discharge Plan
Departure
Patient Disposition: [facility]/SNF
Date of Disposition: 06/02/24
Time of Disposition: 12:48
Condition: Fair
Discharge Problem:
Alzheimer's dementia with agitation
Instructions: Dementia (DC)
Prescriptions:
No Action
donepezil 10 mg Tablet
20 mg PO QPM
atorvastatin 20 mg tablet
10 mg PO NOON
sertraline 100 mg tablet
125 mg PO DAILY
quetiapine [Seroquel] 25 mg Tablet
25 mg PO NOON
omeprazole 20 mg Capsule,Delayed Release(Dr/Ec)
20 mg PO DAILY
quetiapine [Seroquel] 25 mg Tablet
75 mg PO QPM
acetaminophen [Tylenol] 325 mg Tablet
650 mg PO DAILYPRN PRN (Reason: mild pain)
loperamide 2 mg Tablet
1 mg PO DAILY
loperamide 2 mg Tablet
2 mg PO DAILYPRN PRN (Reason: diarrhea)
divalproex 125 mg capsule, delayed rel sprinkle
250 mg PO BID
Referrals:
UNKNOWN - PT NOT,INTERVIEWE [Family Provider] -
Interventions
Interventions:
*Risk Screen - Suicide Last Done: 06/02/24 09:32
*General Assessment Last Done: 06/02/24 09:32
*Neglect/Abuse Screening Last Done: 06/02/24 09:32
*ED- Fall Risk Assessment Last Done: 06/02/24 11:19
*ED COVID-19 Vaccine History Last Done: 06/02/24 09:32
ED- Pulmonary Assessment Last Done: 06/02/24 09:50
ED- Neurological Assessment Last Done: 06/02/24 09:50
ED- Cardiac Assessment Last Done: 06/02/24 09:50
ED Swallowing Screen Last Done: 06/02/24 09:50
Discharge Date and Time
Print Language: KINYARWANDA
[2024-06-02 10:00] VITALS: BP 147/69
[2024-06-02 10:01] LABS: % Basophils 0.4 % (0-2); % Eosinophils 1.3 % (0-6); % Immature Granulocytes 0.3 % (0-0.5); % Lymphocytes 7.8 % (20.5-51.1); % Monocytes 2.6 % (1.7-9.3); % Neutrophils 87.6 % (42.2-75.2); Absolute Eosinophils 0.1 10^3/uL (0-0.7); Absolute Lymphocytes 0.8 10^3/uL (1.2-3.4); Absolute Monocytes 0.3 10^3/uL (0.1-0.6); Absolute Neutrophils 8.9 10^3/uL (1.4-6.5); Hematocrit 37.6 % (39.0-52.0); Hemoglobin 12.4 g/dL (13.0-18.0); Mean Corpuscular Hgb 30.2 pg (27.0-31.0); Mean Corpuscular Volume 91.5 fL (80.0-94.0); Mean Platelet Volume 12.2 fL (7.4-10.4); Nucleated Red Blood Cells % 0 % (-); Platelet Count 134 10^3/uL (130-400); Red Blood Cell Count 4.11 10^6/uL (4.70-6.10); Red Cell Dist. Width 13.6 % (11.5-14.5); White Blood Cell Count 10.1 10^3/uL (4.8-10.8)
[2024-06-02 10:22] LABS: ALT (SGPT) 18 U/L (0-50); AST (SGOT) 27 U/L (17-59); Alkaline Phosphatase 71 U/L (38-126); Blood Urea Nitrogen 30 mg/dl (9-20); Calcium 9.7 mg/dl (8.4-10.2); Carbon Dioxide 27 mmol/L (22-30); Chloride 107 mmol/L (98-107); Estimated Creatinine Clearance 47 ml/min; Glucose 123 mg/dl (70-99); Potassium 4.7 mmol/L (3.5-5.1); Sodium 140 mmol/L (135-145); Total Bilirubin 0.5 mg/dl (0.2-1.3); Total Protein 6.8 g/dl (6.3-8.2); eGFR 58.17
[2024-06-02 11:00] VITALS: BP 158/66
[2024-06-02 16:00] VITALS: BP 91/72
== END 2024-06-02 18:28 ==
LOC: EMR 09:30
PROVIDERS: EMERGENCY PHYSICIAN Emergency Medicine
DX: G30.9 Alzheimer's disease, unspecified (principal); F02.811 Dementia in other diseases classified elsewhere, unspecified severity, with agitation; E78.00 Pure hypercholesterolemia, unspecified; I10 Essential (primary) hypertension; Z88.0 Allergy status to penicillin
CPT/HCPCS: 99283; 80053; 85025

== ENCOUNTER 2024-07-24 21:40 | Emergency (ER) | payer OTHER, SELFPAY ==
[2024-07-24 21:46] VITALS: BP 149/62
[2024-07-24 21:49] VITALS: BP 149/62
--- NOTE | 2024-07-24 23:00 | ED.GENMED ---
History of Present Illness
<Orlando Bojorquez MD - Last Filed: 07/25/24 13:37>
General
Chief Complaint: Back Pain
Source: patient
Exam Limitations: none
Time Seen by Provider: 07/24/24 22:44
Nursing documentation reviewed up to this point in time: agreed with
History of Present Illness
History of Present Illness:
Patient with history of dementia, presents to ED from snf secondary to back pain. Upon arrival, patient does complain of back pain, but does not offer any additional information. Patient states that he has been able to walk. In addition,
when left alone, patient states that he has no pain. Denies fever. Denies abdominal pain.
Past History
<Orlando Bojorquez MD - Last Filed: 07/25/24 13:37>
Past History
ED Past Medical History: HTN, Hypercholesterolemia and Other (Alzheimer's)
ED Past Surgical History: Orthopedic
Social History
Tobacco: Non-smoker
Alcohol: None
Drug: None
Personal:
Living: other (dementia care facility)
Review of Systems
<Orlando Bojorquez MD - Last Filed: 07/25/24 13:37>
Review of Systems
Allergies reviewed?: Yes
Unable to obtain full review of systems at this time due to: dementia
All Other Systems: Not applicable
Phy Exam
<Orlando Bojorquez MD - Last Filed: 07/25/24 13:37>
Physical Exam
Physical Exam:
Physical Exam
General: no apparent distress, not acutely ill. afebrile
Head: nc/at. eomi
Neck: supple. normal range of motion
Abdomen: normal bowel sounds. not tender.
Back: no midline tenderness. negative straight leg raise
Neuro: alert and oriented x 1. no focal neurological deficits
Skin: no rash
Psychiatric: well kept. interactive and cooperative
Extremities: no edema.
Course
<Orlando Bojorquez MD - Last Filed: 07/25/24 13:37>
Orders/Labs/Results
Orders:
Orders
07/24/24 22:58
Acetaminophen [Tylenol] 650 mg PO NOW STA
07/24/24 22:59
CR Lumbar Spine 2 Or 3 Views Urgent
Reason For Exam: lower back pain
07/25/24 00:30
Urinalysis Reflex To Culture Urgent
Date Specimen was Collected: 07/25/24
Time Specimen was Collected: 00:28
07/25/24 01:20
Consult Notification Routine
Specialty to Notify: Psychiatry
Date consulting provider notified: 07/25/24
Time consulting provider notified: 07:00
Notified:: Provider
PSYCHIATRY CONSULT Urgent
Consulting Provider: Diane Jones
Was physician already notified: No
Reason for consult: agitation
07/25/24 06:41
Complete Blood Count/With Diff Urgent
Comprehensive Metabolic Panel Urgent
Depakane Urgent
Abnormal Lab Results
07/25/24
06:41
RBC 3.97 L 10^6/uL
(4.70-6.10)
Hgb 11.8 L g/dL
(13.0-18.0)
Hct 35.3 L %
(39.0-52.0)
RDW 14.6 H %
(11.5-14.5)
MPV 12.5 H fL
(7.4-10.4)
Abs Immat Gran (auto) 0.1 H 10^3/uL
(0-0.05)
Chloride 111 H mmol/L
(98-107)
Glucose 108 H mg/dl
(70-99)
Valproic Acid 27.0 L ug/ml
(50.0-120.0)
07/25/24 06:41
07/25/24 06:41
Vital Signs
Initial and Last Documented VS:
Initial Vital Signs
Temp Pulse Resp BP Pulse Ox
98.7 F 69 22 149/62 92
07/24/24 21:46 07/24/24 21:46 07/24/24 21:46 07/24/24 21:46 07/24/24 21:46
Last Documented Vital Signs
Temp Pulse Resp BP Pulse Ox
98.7 F 63 18 150/58 93
07/24/24 21:46 07/25/24 11:13 07/25/24 11:13 07/25/24 11:13 07/25/24 11:13
<John Davey, - Last Filed: 07/25/24 10:48>
Orders/Labs/Results
Orders:
Orders
07/24/24 22:58
Acetaminophen [Tylenol] 650 mg PO NOW STA
07/24/24 22:59
CR Lumbar Spine 2 Or 3 Views Urgent
Reason For Exam: lower back pain
07/25/24 00:30
Urinalysis Reflex To Culture Urgent
Date Specimen was Collected: 07/25/24
Time Specimen was Collected: 00:28
07/25/24 01:20
Consult Notification Routine
Specialty to Notify: Psychiatry
Date consulting provider notified: 07/25/24
Time consulting provider notified: 07:00
Notified:: Provider
PSYCHIATRY CONSULT Urgent
Consulting Provider: Diane Jones
Was physician already notified: No
Reason for consult: agitation
07/25/24 06:41
Complete Blood Count/With Diff Urgent
Comprehensive Metabolic Panel Urgent
Depakane Urgent
Abnormal Lab Results
07/25/24
06:41
RBC 3.97 L 10^6/uL
(4.70-6.10)
Hgb 11.8 L g/dL
(13.0-18.0)
Hct 35.3 L %
(39.0-52.0)
RDW 14.6 H %
(11.5-14.5)
MPV 12.5 H fL
(7.4-10.4)
Abs Immat Gran (auto) 0.1 H 10^3/uL
(0-0.05)
Chloride 111 H mmol/L
(98-107)
Glucose 108 H mg/dl
(70-99)
Valproic Acid 27.0 L ug/ml
(50.0-120.0)
07/25/24 06:41
07/25/24 06:41
Vital Signs
Initial and Last Documented VS:
Initial Vital Signs
Temp Pulse Resp BP Pulse Ox
98.7 F 69 22 149/62 92
07/24/24 21:46 07/24/24 21:46 07/24/24 21:46 07/24/24 21:46 07/24/24 21:46
Last Documented Vital Signs
Temp Pulse Resp BP Pulse Ox
98.7 F 63 18 150/58 93
07/24/24 21:46 07/25/24 11:13 07/25/24 11:13 07/25/24 11:13 07/25/24 11:13
<Orlando Bojorquez MD - Last Filed: 07/25/24 13:37>
MDM/Problems Addressed
MDM/Problems Addressed:
Spoke with Cely (MARIA FERNANDA/director) @ [facility]. Pt has had increased episodes of aggression recently. Today, patient started complaining of severe back pain and refusing to move. Patient has had number of similar symptoms in the past
requiring inpatient psychiatric evaluation and treatment along with an infection that triggers his change in behavior. Unfortunately, where he resides, there is no physician overseeing other residents. Family can purchase community health physician
service, if needed. Currently, patient will have to be transported via private vehicle to see his primary care physician. After discussion, decision made to evaluate patient with x-ray, urine study, along with consultation to psychiatry, see if
medication adjustments can be made, so that patient is more 'manageable' upon return.
In ED, patient is alert and awake, but confused. Patient does complain of intermittent back pain, but is able to ambulate with steady gait with minimal assistance. Patient does have episodes of verbal outbursts, but no aggressive behavior noted.
Patient is able to be redirected with conversation.
<Orlando Bojorquez MD - Last Filed: 07/25/24 13:37>
*Critical Care Note
Total Time (30-74mins, 75-104mins- exclusive of procedures): Not Applicable
<John Davey DO - Last Filed: 07/25/24 10:48>
Update Note
Update Note:
Patient seen and examined by psychiatry who did discuss his case with his care providers. Medication recommendations made.
ED Attending Note
<Orlando Bojorquez MD - Last Filed: 07/25/24 13:37>
-
Portions of this chart may have been created with voice recognition software.� Occasional wrong word or��sound alike� substitutions may have occurred due to the inherent limitations of voice recognition software.
Discharge Plan
Departure
Patient Disposition: Home (Routine Discharge)
Date of Disposition: 07/25/24
Time of Disposition: 10:33
Patient with high blood pressure during this ER visit?: No
Discharge Problem:
Dementia
Instructions: Dementia - ED discharge instructions
Prescriptions:
New
trazodone 50 mg tablet
50 mg PO HS Qty: 30 0RF
quetiapine [Seroquel] 25 mg tablet
25 mg PO BID Qty: 90 0RF
Rx Instructions:
25mg BID and 100mg qhs
divalproex [Depakote] 250 mg tablet,delayed release (DR/EC)
250 mg PO BID Qty: 60 0RF
No Action
donepezil 10 mg Tablet
20 mg PO QPM
atorvastatin 20 mg tablet
20 mg PO NOON
sertraline 100 mg tablet
50 mg PO DAILY
quetiapine [Seroquel] 25 mg Tablet
75 mg PO QPM
acetaminophen [Tylenol] 325 mg Tablet
650 mg PO DAILYPRN PRN (Reason: mild pain)
divalproex 125 mg capsule, delayed rel sprinkle
250 mg PO BID
melatonin 3 mg Tablet
6 mg PO HS
aspirin 81 mg Tablet
81 mg PO DAILY
lisinopril 5 mg Tablet
5 mg PO DAILY
diltiazem HCl 30 mg Tablet
30 mg PO BID
Referrals:
UNKNOWN - PT NOT,INTERVIEWE [Family Provider] -
Activity Restrictions/Additional Instructions:
As advised by psychiatry please make the following medication changes:
- Increase Depakote to 250 mg 3 times a day
- Increase Seroquel to 25 mg twice a day and 100 mg every night
- Take trazodone 50 mg every night
- Stop sertraline
- Stop donepezil
- Stop Melatonin
Return immediately for fevers, vomiting, change in mentation or any other concerns.
Interventions
Interventions:
*Risk Screen - Suicide Last Done: 07/24/24 21:46
*General Assessment Last Done: 07/24/24 21:46
*Neglect/Abuse Screening Last Done: 07/24/24 21:46
*ED- Fall Risk Assessment Last Done: 07/24/24 21:46
*ED COVID-19 Vaccine History Last Done: 07/24/24 21:46
*Nursing Disposition Last Done: 07/25/24 12:05
ED-Musculoskeletal Assessment Last Done: 07/25/24 03:29
Discharge Date and Time
Discharge Date/Time: 07/25/24 12:08
Print Language: SWISS
[2024-07-25] MEDS: TYLENOL 650 MG PO (00:12)
[2024-07-25 00:37] LABS: Urine Albumin Negative (Neg - Trace); Urine Bilirubin Negative (Negative); Urine Character Clear (Clear); Urine Color Yellow; Urine Glucose Negative (Negative); Urine Ketone Negative (Negative); Urine Leukocyte Negative (Negative); Urine Nitrite Negative (Negative); Urine Occult Blood Negative (Negative); Urine Specific Gravity 1.005 (<1.030); Urine Urobilinogen Negative (Neg - 1+)
[2024-07-25 03:29] VITALS: BP 162/62
[2024-07-25 05:21] VITALS: BP 163/79
[2024-07-25 05:28] VITALS: BP 162/79
[2024-07-25 06:59] LABS: % Basophils 0.5 % (0-2); % Eosinophils 2.1 % (0-6); % Immature Granulocytes 0.5 % (0-0.5); % Monocytes 6.7 % (1.7-9.3); % Neutrophils 55.2 % (42.2-75.2); Absolute Basophils 0.1 10^3/uL (0-0.2); Absolute Eosinophils 0.2 10^3/uL (0-0.7); Absolute Immature Granulocytes 0.1 10^3/uL (0-0.05); Absolute Lymphocytes 3.2 10^3/uL (1.2-3.4); Absolute Monocytes 0.6 10^3/uL (0.1-0.6); Absolute Neutrophils 5.1 10^3/uL (1.4-6.5); Hematocrit 35.3 % (39.0-52.0); Hemoglobin 11.8 g/dL (13.0-18.0); Mean Corp Hgb Conc. 33.4 g/dL (33.0-37.0); Mean Corpuscular Hgb 29.7 pg (27.0-31.0); Mean Corpuscular Volume 88.9 fL (80.0-94.0); Mean Platelet Volume 12.5 fL (7.4-10.4); Nucleated Red Blood Cells % 0 % (-); Platelet Count 148 10^3/uL (130-400); Red Blood Cell Count 3.97 10^6/uL (4.70-6.10); Red Cell Dist. Width 14.6 % (11.5-14.5); White Blood Cell Count 9.2 10^3/uL (4.8-10.8)
[2024-07-25 07:07] LABS: ALT (SGPT) 21 U/L (0-50); AST (SGOT) 27 U/L (17-59); Albumin 4.1 g/dl (3.5-5.0); Alkaline Phosphatase 79 U/L (38-126); Blood Urea Nitrogen 20 mg/dl (9-20); Calcium 9.6 mg/dl (8.4-10.2); Carbon Dioxide 27 mmol/L (22-30); Chloride 111 mmol/L (98-107); Glucose 108 mg/dl (70-99); Potassium 4.5 mmol/L (3.5-5.1); Sodium 145 mmol/L (135-145); Total Bilirubin 0.8 mg/dl (0.2-1.3); Total Protein 6.8 g/dl (6.3-8.2); eGFR 58.17
--- NOTE | 2024-07-25 09:33 | CON.MD ---
Consultation - Medical
-
patient seen chart reviewed. case discussed at length with nursing support worker who knows patient very well. also discussed w dr johnston. the patient is an 89 year old man with significant dementia. he was hospitalized several months ago at [facility]. he then was at [facility] but family dissatisfied w his care and he now resides at [facility] which is a small nursing facility with patient to staff ratio of four to one. there is a adult crossing guard physician who attends to
patients. the patient's in the fall. over the last several months he has become increasingly impaired both in terms of adl's and oppositionalism/aggression. he is brought here to er for suggestions to help maintain him at that facility
rather than hospitalize on [facility]. the patient was very testy. he would not or could not give me much information and kept asking 'who wants to know...who are you....? ' despite my explanations to his questions. the patient 's current meds
include depakote 125 mg bid zoloft being tapered dose 50 mg seroquel 75 mg q hs donepezil 20 mg q hs melatonin 6 mg q hs. he is very resistant to taking meds so [facility] has been holding anything they felt was non essential including donepezil
melatonin which it is felt were not helping. the depakote was being cut back bc did not help but it sounds like level was never therapeutic and he was on it when he was at [facility] and was doing better when dc'ed from that facility. they are
willing to take him back and try to see if med changes help prior to thinking about rehosp or even hospice
past psych see above
medical hx htn hld hx pneumonia hx head injury hx back pain. labs look unremarkable at this point. hx gerd hx prostate ca
fh non contributory
substance abuse not
social resides as above has d who is supportive was an senior application software engineer several months ago. they were 'inseparable'
mse patient w severe cognitive impairment oriented to person only who was irritable and would not or could not answer any questions see above
dx dementia with behavioral disturbance
plan discussed w nursing support worker at his residence. they will take him back and give a try w med changes. would increase depakote to 250 mg tid inc seroquel to 25 mg bid and 100 q hs trazodone 50 mg q hs stop donepezil stop sertraline. stop
melatonin. duc magdaleno should monitor depakote level aim for upper reaches of 50 to 100. their sw should call insurance to see if there is a psych who could see him on video which is the only possibility fonow as [facility] cannot transport for medical .
if med changes fail to help consider psych hospitalization on [facility] . hospice might also be considered. dr johnston to send scrips to [facility].
[2024-07-25 11:07] VITALS: BP 150/58
[2024-07-25 11:13] VITALS: BP 150/58
== END 2024-07-25 12:08 | disposition home or self-care (01) ==
LOC: EMR 21:40
PROVIDERS: Emergency Medicine; CONSULT PHYSICIAN Psychiatry & Neurology Psychiatry; EMERGENCY PHYSICIAN Emergency Medicine
DX: F03.911 Unspecified dementia, unspecified severity, with agitation (principal); M54.9 Dorsalgia, unspecified; I10 Essential (primary) hypertension
CPT/HCPCS: 99284; 72100; 80053; 80164; 81003; 85025

== ENCOUNTER 2024-07-28 21:59 | Emergency (ER) | payer OTHER, SELFPAY ==
[2024-07-28 22:01] VITALS: BP 164/71
[2024-07-28 22:03] VITALS: BP 164/71
[2024-07-28 22:28] LABS: % Basophils 0.4 % (0-2); % Eosinophils 1.1 % (0-6); % Immature Granulocytes 0.3 % (0-0.5); % Lymphocytes 24.2 % (20.5-51.1); % Monocytes 7.7 % (1.7-9.3); % Neutrophils 66.3 % (42.2-75.2); Absolute Basophils 0.1 10^3/uL (0-0.2); Absolute Eosinophils 0.1 10^3/uL (0-0.7); Absolute Lymphocytes 3.1 10^3/uL (1.2-3.4); Absolute Neutrophils 8.4 10^3/uL (1.4-6.5); Hematocrit 37.2 % (39.0-52.0); Hemoglobin 12.5 g/dL (13.0-18.0); Mean Corp Hgb Conc. 33.6 g/dL (33.0-37.0); Mean Corpuscular Hgb 29.3 pg (27.0-31.0); Mean Corpuscular Volume 87.1 fL (80.0-94.0); Mean Platelet Volume 12.1 fL (7.4-10.4); Nucleated Red Blood Cells % 0 % (-); Platelet Count 180 10^3/uL (130-400); Red Blood Cell Count 4.27 10^6/uL (4.70-6.10); Red Cell Dist. Width 14.6 % (11.5-14.5); White Blood Cell Count 12.7 10^3/uL (4.8-10.8)
[2024-07-28 22:45] LABS: Blood Urea Nitrogen 33 mg/dl (9-20); Calcium 9.8 mg/dl (8.4-10.2); Carbon Dioxide 22 mmol/L (22-30); Chloride 108 mmol/L (98-107); Glucose 106 mg/dl (70-99); Sodium 140 mmol/L (135-145); eGFR > 60.00
[2024-07-28 22:53] LABS: Troponin I < 0.012 ng/ml
[2024-07-28 23:00] VITALS: BP 142/76
[2024-07-29] VITALS: BP 133/95
--- NOTE | 2024-07-29 00:33 | ED.GENMED ---
History of Present Illness
General
Chief Complaint: Change in Mental Status
Source: family (Daughter Gala), lawn caretaker and ambulance crew
Time Seen by Provider: 07/28/24 23:33
History of Present Illness
History of Present Illness:
This is a pleasantly demented 89-year-old male that presents to the emergency department with acute on chronic back pain and cough. According to daughter Gala, she was seen on Saturday. He developed a cough on Saturday. He complains of chest pain
every time he coughs. Patient has not been eating normally according to daughter. She reports that he is not leaving the room. Received a call from Dr. Jarquin, geriatric [facility] physician that was hired by the family to care for him. Her first
appointment with him is tomorrow. They have discussed hospice care. She request that if we discharged the patient give him pain medication.
Past History
Past History
ED Past Medical History: HTN, Hypercholesterolemia and Other (Alzheimer's)
ED Past Surgical History: Orthopedic
Social History
Tobacco: Non-smoker
Alcohol: None
Drug: None
Personal:
Living: other (dementia care facility)
Review of Systems
Review of Systems
Respiratory: Reports cough
Cardiac: Reports chest pain (From coughing)
Musculoskeletal: Reports back pain (Chronic)
Phy Exam
General Physical Exam
General Presentation: no apparent distress
General age: appears stated age
General Skin: warm and dry
General Habitus: elderly
General Mental: anxious, confused, usual mental status and verbally abusive
General Hydration: dry mucous membranes
ENT Exam
ENT Exam: EOMI
Cardiovascular Exam
Cardiovascular Exam: regular rate/rhythm and no edema
Neurological Exam
Neurological Exam: alert
Skin Exam
Skin Exam: normal color and warm/dry
Psychiatric Exam
Psychiatric Exam: normal mood/affect and agitated
Course
Orders/Labs/Results
Orders:
Orders
07/28/24 22:06
EKG [Electrocardiogram (*1)] Urgent
Reason for Study: Chest Pain
07/28/24 22:07
EKG- Treatment ONCE
07/28/24 22:12
Cardiac Monitoring- Treatment ONCE
IV Insert/Care/Rem.- Treatment PRN
Pulse Ox/spot Check [RESP] Urgent
Quantity: 1
Special Instructions: ON ROOM AIR
07/28/24 22:20
Basic Metabolic Panel Urgent
Complete Blood Count/With Diff Urgent
Troponin I Urgent
07/29/24 00:33
Urinalysis Reflex To Culture Urgent
07/29/24 00:54
CR Chest - 2 Views Urgent
Comment:
Reason For Exam: cough
07/29/24 00:55
0.9% Sodium Chloride 1000 ml [Nss] 1,000 ml IV BOLUS
Abnormal Lab Results
07/28/24
22:20
WBC 12.7 H 10^3/uL
(4.8-10.8)
RBC 4.27 L 10^6/uL
(4.70-6.10)
Hgb 12.5 L g/dL
(13.0-18.0)
Hct 37.2 L %
(39.0-52.0)
RDW 14.6 H %
(11.5-14.5)
MPV 12.1 H fL
(7.4-10.4)
Absolute Neuts (auto) 8.4 H 10^3/uL
(1.4-6.5)
Absolute Monos (auto) 1.0 H 10^3/uL
(0.1-0.6)
Chloride 108 H mmol/L
(98-107)
BUN 33 H mg/dl
(9-20)
Glucose 106 H mg/dl
(70-99)
07/28/24 22:20
07/28/24 22:20
Vital Signs
Initial and Last Documented VS:
Initial Vital Signs
BP
164/71
07/28/24 22:01
Last Documented Vital Signs
Pulse Resp BP Pulse Ox
72 19 137/70 96
07/29/24 01:01 07/29/24 01:01 07/29/24 01:01 07/28/24 22:03
*Critical Care Note
Total Time (30-74mins, 75-104mins- exclusive of procedures): 35 (Critical care statement: A total of 45 minutes of critical care time was provided for this patient. This time is separate from time utilized to perform the aforementioned documented
procedures. Aggregate critical care time includes only time during which I was engaged in work directl)
Update Note
Update Note:
11 {M�spoke with Dr. Jarquin, [facility] geriatric physician at [phone] regarding patient. She is due to see the patient for the first time tomorrow. She was notified the patient is coming to the emergency department. She requests a workup as to
why he is having this cough. She is due to see the patient first thing in the morning.
12:59 AM�spoke with daughter Gala and she was able to tell me that he has chronic back pain. Had a lumbar x-ray which was negative on Saturday. He has been coughing since Saturday after being discharged from the ER. He is not eating and not leaving
in the room.
3:39 AM�still trying to get urine for evaluation. Patient has been resting comfortably.
5:30 AM�spoke with Gala who was updated of the situation. She requested that we speak with the shoe caser at the facility [facility] at [phone].
5:38 AM�attempted to contact [facility] with minimal success. Message left. Awaiting callback.
6:15 AM�spoke with [facility]. Believes she was concerned because she witnessed violent coughing and patient has had aspiration pneumonia in the past. Chest x-ray shows a little haziness so I will cover him for Doxy with doxycycline.
6:23 AM�spoke with daughter Gala to make her aware of the doxycycline. Patient will get a paper prescription to go back as per [facility]'s request. Daughter is aware. Patient to see Dr. Jarquin today
ED Attending Note
-
Portions of this chart may have been created with voice recognition software.� Occasional wrong word or��sound alike� substitutions may have occurred due to the inherent limitations of voice recognition software.
Discharge Plan
Departure
Patient Disposition: Detention/SNF
Date of Disposition: 07/29/24
Time of Disposition: 06:18
Condition: Good
Discharge Problem:
Pneumonia
Instructions: Altered Mental Status (DC), Dementia (DC), Aspiration pneumonia - Discharge instructions
Prescriptions:
New
doxycycline hyclate 100 mg capsule
100 mg PO BID Qty: 20 0RF
No Action
donepezil 10 mg Tablet
20 mg PO QPM
atorvastatin 20 mg tablet
20 mg PO NOON
sertraline 100 mg tablet
50 mg PO DAILY
quetiapine [Seroquel] 25 mg Tablet
75 mg PO QPM
acetaminophen [Tylenol] 325 mg Tablet
650 mg PO DAILYPRN PRN (Reason: mild pain)
divalproex 125 mg capsule, delayed rel sprinkle
250 mg PO BID
melatonin 3 mg Tablet
6 mg PO HS
aspirin 81 mg Tablet
81 mg PO DAILY
lisinopril 5 mg Tablet
5 mg PO DAILY
diltiazem HCl 30 mg Tablet
30 mg PO BID
trazodone 50 mg tablet
50 mg PO HS Qty: 30 0RF
quetiapine [Seroquel] 25 mg tablet
25 mg PO BID Qty: 90 0RF
Rx Instructions:
25mg BID and 100mg qhs
divalproex [Depakote] 250 mg tablet,delayed release (/EC)
250 mg PO BID Qty: 60 0RF
Referrals:
[facility] [Outside]
UNKNOWN - PT DOES,NOT KNOW [Family Provider] -
Activity Restrictions/Additional Instructions:
Thank You for choosing [facility].
It was a pleasure meeting you and taking part in your care. We hope for your continued healing and wellness.
Please read discharge instructions in their entirety. However, they are for general education and may not describe your exact diagnosis at discharge. Information on your ER visit and medical conditions were discussed with you along with appropriate
follow up information...
If indicated, please take your medications as instructed and indicated on discharge paperwork.
Please schedule a follow up appointment as directed. Call to schedule an appointment
Please return to the emergency department with ANY change in, persisting, or worsening of symptoms. If any of your symptoms do not improve, or persist, or become more severe within 6-12 hours, please return to the emergency department for further
care.
Please return to the emergency department if you develop a headache, neck pain/stiffness, fever greater than 100.4F, chest pain, shortness of breath, persistent nausea, vomiting, slurred speech, difficulty walking, numbness/tingling, weakness, signs
of infection or any other symptoms that are worrisome to you.
If you have any questions or concerns please do not hesitate to call the Hospital at or E-mail me directly at [email or web address]
Interventions
Interventions:
*Risk Screen - Suicide Last Done: 07/28/24 22:19
*General Assessment Last Done: 07/28/24 22:03
*Neglect/Abuse Screening Last Done: 07/28/24 22:18
*ED- Fall Risk Assessment Last Done: 07/29/24 01:49
*ED COVID-19 Vaccine History Last Done: 07/28/24 22:18
ED- Pulmonary Assessment Last Done: 07/28/24 22:17
ED- Neurological Assessment Last Done: 07/28/24 22:15
ED- Cardiac Assessment Last Done: 07/28/24 22:17
ED Swallowing Screen Last Done: 07/28/24 22:15
Discharge Date and Time
Print Language: VIET[place]ESE
[2024-07-29 01:01] VITALS: BP 137/70
[2024-07-29] MEDS: NSS 1000 IV (01:02)
== END 2024-07-29 06:45 ==
LOC: EMR 21:59
PROVIDERS: Student in an Organized Health Care Education/Training Program; EMERGENCY PHYSICIAN Student in an Organized Health Care Education/Training Program
DX: J18.9 Pneumonia, unspecified organism (principal); I10 Essential (primary) hypertension; E78.00 Pure hypercholesterolemia, unspecified; F02.80 Dementia in other diseases classified elsewhere, unspecified severity, without behavioral disturbance, psychotic disturbance, mood disturbance, and anxiety; G30.9 Alzheimer's disease, unspecified; G89.29 Other chronic pain
CPT/HCPCS: 96360; 99291; 71046; 80048; 84484; 85025; 93005